=== PATIENT | male | born 1960 | race Caucasian/White ===

== ENCOUNTER 2017-07-25 17:26 | Observation (INO) | payer BC ==
[2017-07-25] MEDS ORDERED: Sodium Chloride 0.9% 10 ML Syringe FLUSH PRN (17:42)
[2017-07-25] MEDS ORDERED: Sodium Chloride 0.9% 1,000 ML IV ONE (17:43)
[2017-07-25] MEDS ORDERED: Albuterol/Ipratropium 3.0-0.5 MG/3 ML Neb Soln NEB ONE (17:48)
[2017-07-25 18:34] LABS: CHLORIDE,CL 100 mmol/L (98-107); SODIUM,NA 137 mmol/L (136-145)
[2017-07-25] MEDS ORDERED: cefTRIAXone 2 GM Vial IVPUSH ONE (19:03)
[2017-07-25] MEDS ORDERED: Azithromycin 250 MG Tab PO ONE (19:04)
[2017-07-25] MEDS: Oseltamivir 75 MG Cap PO SCH (19:22)
[2017-07-25] MEDS ORDERED: Iopamidol 612 MG/ML 100 ML Bottle IVPUSH ONE (19:48)
[2017-07-25] MEDS: methylPREDNISolone Sodium Succinate 125 MG/2 ML SDV IVPUSH SCH (21:56)
[2017-07-25] MEDS: Enoxaparin 40 MG/0.4 ML Syringe SUBCUT SCH (21:56)
[2017-07-25] MEDS: NS + KCl 20mEq/L 1,000 ML IV SCH (21:57)
[2017-07-25] MEDS: Formoterol/Mometasone 200-5 MCG 8.8 GM Inhaler IH SCH (22:57)
[2017-07-26] MEDS: Albuterol/Ipratropium 3.0-0.5 MG/3 ML Neb Soln NEB SCH ×4 (01:27→18:43)
[2017-07-26] MEDS: NS + KCl 20mEq/L 1,000 ML IV SCH ×2 (04:42→11:36)
[2017-07-26] MEDS: Formoterol/Mometasone 200-5 MCG 8.8 GM Inhaler IH SCH ×2 (06:13→20:13)
[2017-07-26] MEDS: methylPREDNISolone Sodium Succinate 125 MG/2 ML SDV IVPUSH SCH ×2 (06:13→15:52)
[2017-07-26] MEDS ORDERED: metFORMIN 500 MG Tab PO SCH (08:00)
[2017-07-26] MEDS ORDERED: atorvaSTATin 10 MG Tab PO SCH ×2 (08:00→20:00)
[2017-07-26] MEDS: Enoxaparin 40 MG/0.4 ML Syringe SUBCUT SCH (08:24)
[2017-07-26] MEDS: Aspirin 81 MG Tab.EC PO SCH (08:25)
[2017-07-26] MEDS: Loratadine 10 MG Tab PO SCH ×2 (08:26→20:12)
[2017-07-26] MEDS: Oseltamivir 75 MG Cap PO SCH ×2 (08:26→20:14)
--- NOTE | 2017-07-26 11:04 | PCM.PN ---
- General Info Date of Service: 07/26/17 Admission Dx/Problem (Free Text): Pt. states that he is feeling much better. He states that his cough and dyspnea have improved significantly. Denies any chest pain. He is currently on rocephin and zithromax as well as tamiflu. He also is receiving solumedrol 125mg IV every 8 hours and duonebs which has significantly with his cough. Pt. continues to be quite tachycardic despite recieving IV fluids. Functional Status: Reports: Pain Controlled - Review of Systems General: Reports: No Symptoms HEENT: Reports: Sinus Congestion, Rhinitis Pulmonary: Reports: Shortness of Breath, Cough Cardiovascular: Reports: No Symptoms Gastrointestinal: Reports: No Symptoms Genitourinary: Reports: No Symptoms Musculoskeletal: Reports: No Symptoms Skin: Reports: No Symptoms Neurological: Reports: No Symptoms Psychiatric: Reports: No Symptoms - Patient Data Vitals - Most Recent: Last Vital Signs Temp 37.2 C 07/26/17 10:00 Pulse 95 07/26/17 10:00 Resp 16 07/26/17 10:00 BP 111/71 07/26/17 10:00 Pulse Ox 94 L 07/26/17 10:00 Weight - Most Recent: 92.986 kg I&O - Last 24 Hours: Intake & Output 07/25/17 07/26/17 07/26/17 22:59 06:59 14:59 Intake Total 1440 3599 2000 Output Total 3200 1150 Balance 1440 399 850 Lab Results Last 24 Hours: Laboratory Results - last 24 hr 07/25/17 07/25/17 07/26/17 Range/Units 23:00 23:00 06:35 WBC 5.4 (4.0-10.0) x10^3/uL RBC 4.19 L (4.5-6.0) x10^6/uL Hgb 12.9 L D (14.0-18.0) g/dL Hct 38.7 L (40.0-52.0) % MCV 92.4 (78.0-93.0) fL MCH 30.8 (26.0-32.0) pg MCHC 33.3 (32.0-36.0) g/dL RDW Coeff of Blayne 11.8 (10.0-15.0) % Plt Count 248 (130-400) x10^3/uL Lactic Acid 1.9 (0.4-2.0) mmol/L Troponin I < 0.017 (<=0.056) ng/mL Yahir Results Last 24 Hours: Microbiology 07/25/17 20:07 Gram Stain - Final Sputum - Expectorated Med Orders - Current: Current Medications Albuterol/Ipratropium (Duoneb 3.0-0.5 Mg/3 Ml) 3 ml NEB Q6HRRT [facility] Last Admin: 07/26/17 07:14 Dose: 3 ml Aspirin (Halfprin) 81 mg PO DAILY [facility] Last Admin: 07/26/17 08:25 Dose: 81 mg Atorvastatin Calcium (Lipitor) 10 mg PO BEDTIME [facility] Azithromycin (Zithromax) 250 mg PO DAILY@1999 [facility] Stop: 07/30/17 20:01 Ceftriaxone Sodium (Rocephin) 1 gm IVPUSH DAILY@1999 [facility] Enoxaparin Sodium (Lovenox) 40 mg SUBCUT DAILY [facility] Last Admin: 07/26/17 08:24 Dose: 40 mg Potassium Chloride/Sodium Chloride (Normal Saline With 20 Meq Kcl) 1,000 mls @ 150 mls/hr IV ASDIRECTED [facility] Last Admin: 07/26/17 04:42 Dose: 150 mls/hr Loratadine (Claritin) 5 mg PO BID [facility] Last Admin: 07/26/17 08:26 Dose: 5 mg Metformin HCl (Glucophage) 1,000 mg PO BID [facility] Methylprednisolone Sodium Succinate (Solu-Medrol) 125 mg IVPUSH Q8H [facility] Last Admin: 07/26/17 06:13 Dose: 125 mg Mometasone Furoate/Formoterol Fumar (Dulera 200-5 Mcg) 2 puff IH BIDRT [facility] Last Admin: 07/26/17 06:13 Dose: 2 puff Oseltamivir Phosphate (Tamiflu) 75 mg PO BID [facility] Last Admin: 07/26/17 08:26 Dose: 75 mg Sodium Chloride (Saline Flush) 10 ml FLUSH ASDIRECTED PRN PRN Reason: Keep Vein Open Discontinued Medications Albuterol/Ipratropium (Duoneb 3.0-0.5 Mg/3 Ml) 3 ml NEB ONETIME ONE Stop: 07/25/17 17:49 Last Admin: 07/25/17 17:56 Dose: 3 ml Atorvastatin Calcium (Lipitor) 10 mg PO DAILY [place] Last Admin: 07/26/17 09:19 Dose: Not Given Azithromycin (Zithromax) 500 mg PO ONETIME ONE Stop: 07/25/17 19:05 Last Admin: 07/25/17 19:23 Dose: 500 mg Ceftriaxone Sodium (Rocephin) 2 gm IVPUSH ONETIME ONE Stop: 07/25/17 19:04 Last Admin: 07/25/17 19:22 Dose: 2 gm Sodium Chloride (Normal Saline) 1,000 mls @ 1,000 mls/hr IV .BOLUS ONE Stop: 07/25/17 18:42 Last Admin: 07/25/17 17:55 Dose: 1,000 mls/hr Iopamidol (Isovue-300 (61%)) 100 ml IVPUSH ONETIME ONE Stop: 07/25/17 19:49 Last Admin: 07/25/17 19:48 Dose: 100 ml - Exam Quality Assessment: Supplemental Oxygen General: Alert, Oriented HEENT: Pupils Equal, Pupils Reactive, EOMI, Mucous Membr. Moist/Amelia Neck: Supple Lungs: Clear to Auscultation, Normal Respiratory Effort, Crackles, Rhonchi Cardiovascular: Regular Rhythm, Tachycardia GI/Abdominal Exam: Normal Bowel Sounds, Soft, Non-Tender, No Organomegaly, No Distention, No Abnormal Bruit, No Mass, Pelvis Stable (Male) Exam: Deferred Back Exam: Normal Inspection, Full Range of Motion Extremities: Normal Inspection, Normal Range of Motion, No Pedal Edema, Normal Capillary Refill Skin: Warm, Dry, Intact Wound/Incisions: Healing Well Neurological: No New Focal Deficit Psy/Mental Status: Alert, Normal Affect, Normal Mood - Problem List & Annotations (1) Influenza SNOMED Code(s): 7038901 Code(s): J11.1 - FLU DUE TO UNIDENTIFIED INFLUENZA VIRUS W OTH RESP MANIFEST Status: Acute Current Visit: Yes (2) Pneumonia SNOMED Code(s): 941824221 Code(s): J18.9 - PNEUMONIA, UNSPECIFIED ORGANISM Status: Acute Current Visit: Yes Qualifiers: Lung location: lower lobe of lung - Problem List Review Problem List Initiated/Reviewed/Updated: Yes - My Orders Last 24 Hours: My Active Orders 07/25/17 20:05 Vital Signs [RC] 06,10,14,18,22,02 07/25/17 20:06 Intake and Output [RC] ,18 Oxygen Therapy [RC] 08,20 Up ad Peg [RC] , VTE/DVT Education [RC] .PRN 07/25/17 20:07 CULTURE SPUTUM + SMEAR [] Stat 07/25/17 20:10 Code Status [Resuscitation Status] Routine 07/25/17 21:38 RT Aerosol Therapy [RC] ,,13,19 07/25/17 21:45 Enoxaparin [Lovenox] 40 mg SUBCUT DAILY NS + KCl 20mEq/L [Normal Saline with 20 mEq KCl] 1,000 ml IV ASDIRECTED 07/25/17 22:00 methylPREDNISolone Sod Succ [Solu-MEDROL] 125 mg IVPUSH Q8H 07/25/17 22:30 Mometasone/Formoterol [Dulera 200-5 MCG] 2 puff IH BIDRT 07/26/17 01:00 Albuterol/Ipratropium [DuoNeb 3.0-0.5 MG/3 ML] 3 ml NEB Q6HRRT 07/26/17 08:00 Aspirin [Halfprin] 81 mg PO DAILY Loratadine [Claritin] 5 mg PO BID metFORMIN [Glucophage] 1,000 mg PO BID 07/26/17 20:00 Azithromycin [Zithromax] 250 mg PO DAILY@1999 atorvaSTATin [Lipitor] 10 mg PO BEDTIME cefTRIAXone [Rocephin] 1 gm IVPUSH DAILY@199907/26/17 Breakfast Regular Diet [DIET] 07/29/17 07:00 CBC W/O DIFF,HEMOGRAM [HEME] Q3D 08/01/17 07:00 CBC W/O DIFF,HEMOGRAM [HEME] Q3D 08/04/17 07:00 CBC W/O DIFF,HEMOGRAM [HEME] Q3D 08/07/17 07:00 CBC W/O DIFF,HEMOGRAM [HEME] Q3D 08/10/17 07:00 CBC W/O DIFF,HEMOGRAM [HEME] Q3D 08/13/17 07:00 CBC W/O DIFF,HEMOGRAM [HEME] Q3D - Assessment Assessment:: Community acquired pneumonia Influenza A Dehydration - Plan Plan:: Continue with current therapy. Will start incentive spirometry as well as flutter valve. Encouraged pt. to ambulate.
[2017-07-26 15:25] LABS: CHLORIDE,CL 100 mmol/L (98-107); SODIUM,NA 133 mmol/L (136-145)
--- NOTE | 2017-07-26 15:46 | EDM.PDOC ---
ED HPI GENERAL MEDICAL PROBLEM - General Chief Complaint: Respiratory Problem Stated Complaint: cough, chest congestion Time Seen by Provider: 07/25/17 17:26 Source of Information: Reports: Patient History Limitations: Reports: No Limitations - History of Present Illness INITIAL COMMENTS - FREE TEXT/NARRATIVE: Pt. presents to the ER with complaints of cough and chest congestion for several weeks, worsening in the past 48 hours. States that the cough is productive of yellowish-greenish sputum. No N/V/D. Denies exposure to sick contacts. Pt. states that he has been extremely fatigued and has been short of breath today, particularly on exertion. He also complains of joint and muscle aches as well. He did not get his flu shot this year. Location: Reports: Chest, Generalized Severity: Moderate Worsens with: Reports: Breathing Associated Symptoms: Reports: Chest Pain, Cough, Diaphoresis, Fever/Chills, Weakness - Related Data Allergies Allergy/AdvReac Type Severity Reaction Status Date / Time No Known Allergies Allergy Verified 07/25/17 19:02 Home Meds: Home Meds Aspirin [Halfprin] 81 mg PO DAILY 02/26/15 [History] Fluticasone/Salmeterol [Advair 250-50] 1 puff PO BID 02/26/15 [History] atorvaSTATin [Lipitor] 10 mg PO DAILY 02/26/15 [History] Loratadine/Pseudoephedrine [Claritin-D 24 Hour Tablet] 1 tab PO DAILY 07/26/17 [ History] metFORMIN HCl [Metformin HCl] 1,000 mg PO BIDMEALS 07/26/17 [History] Past Medical History HEENT History: Reports: Other (See Below) Other HEENT History: seasonal allergies. sinus problems Cardiovascular History: Reports: High Cholesterol Respiratory History: Reports: Asthma Other Musculoskeletal History: fracture of neck of femur Endocrine/Metabolic History: Reports: Diabetes, Type II Oncologic (Cancer) History: Reports: Other (See Below) Other Oncologic History: rectal CA - Past Surgical History GI Surgical History: Reports: None Endocrine Surgical History: Reports: None Other Musculoskeletal Surgeries/Procedures:: REPAIR OF FX LEFT HIP 45 YRS AGO Oncologic Surgical History: Reports: None Social & Family History - Family History Family Medical History: Noncontributory - Tobacco Use Smoking Status *Q: Never Smoker Second Hand Smoke Exposure: No - Caffeine Use Caffeine Use: Reports: None - Recreational Drug Use Recreational Drug Use: No Drug Use in Last 12 Months: No ED ROS GENERAL - Review of Systems Review Of Systems: See Below Constitutional: Reports: Fever, Chills HEENT: Reports: No Symptoms Respiratory: Reports: Shortness of Breath, Cough, Sputum Cardiovascular: Reports: No Symptoms Endocrine: Reports: No Symptoms GI/Abdominal: Reports: No Symptoms : Reports: No Symptoms Musculoskeletal: Reports: Joint Pain, Muscle Pain Skin: Reports: Diaphoresis Neurological: Reports: No Symptoms Psychiatric: Reports: No Symptoms Hematologic/Lymphatic: Reports: No Symptoms Immunologic: Reports: No Symptoms ED EXAM, GENERAL - Physical Exam Exam: See Below Exam Limited By: No Limitations General Appearance: Alert, WD/WN, No Apparent Distress Eye Exam: Bilateral Eye: EOMI, Normal Fundi, Normal Inspection, PERRL Ears: Normal External Exam, Normal Canal, Hearing Grossly Normal, Normal TMs Nose: Normal Inspection, Normal Mucosa, No Blood Throat/Mouth: Normal Inspection, Normal Lips, Normal Teeth, Normal Gums, Normal Oropharynx, Normal Voice, No Airway Compromise Head: Atraumatic, Normocephalic Neck: Normal Inspection, Supple, Non-Tender, Full Range of Motion Respiratory/Chest: No Accessory Muscle Use, Decreased Breath Sounds, Crackles, Rhonchi, Wheezing Cardiovascular: Normal Peripheral Pulses, Regular Rate, Rhythm, No Edema, No JVD , No Murmur, No Rub GI/Abdominal: Normal Bowel Sounds, Soft, Non-Tender, No Organomegaly, No Distention, No Abnormal Bruit, No Mass, Pelvis Stable Back Exam: Normal Inspection, Full Range of Motion Extremities: Normal Inspection, Normal Range of Motion, No Pedal Edema, Normal Capillary Refill Neurological: Alert, Oriented, CN II-XII Intact, Normal Cognition, Normal Gait, Normal Reflexes, No Motor/Sensory Deficits Psychiatric: Normal Affect, Normal Mood Skin Exam: Warm, Dry, Intact, Normal Color, No Rash Course - Vital Signs Last Recorded V/S: Last Vital Signs Temp 37.6 C 07/26/17 14:00 Pulse 120 H 07/26/17 14:00 Resp 20 07/26/17 14:00 BP 137/81 07/26/17 14:00 Pulse Ox 95 07/26/17 14:00 - Orders/Labs/Meds Orders: Active Orders 24 hr Category Date Time Status Cardiac Monitoring [RC] 06,10,14,18,22,02 Care 07/25/17 17:43 Active Oxygen Therapy [RC] PRN Care 07/25/17 17:43 Active RT Aerosol Therapy [RC] ASDIRECTED Care 07/25/17 17:48 Active Ang Chest [CT] Stat Exams 07/25/17 19:08 Taken Chest 2V [CR] Stat Exams 07/25/17 17:42 Taken CULTURE BLOOD [BC] Stat Lab 07/25/17 17:50 Received CULTURE BLOOD [BC] Stat Lab 07/25/17 18:00 Received Oseltamivir [Tamiflu] Med 07/25/17 20:00 Active 75 mg PO BID Sodium Chloride 0.9% [Saline Flush] Med 07/25/17 17:42 Active 10 ml FLUSH ASDIRECTED PRN Blood Culture x2 Reflex Set [OM.PC] Stat Oth 07/25/17 17:43 Ordered Peripheral IV Insertion Adult [OM.PC] Routine Oth 07/25/17 17:43 Ordered Medication Orders Albuterol/Ipratropium (Duoneb 3.0-0.5 Mg/3 Ml) 3 ml NEB Q6HRRT [facility] Last Admin: 07/26/17 12:54 Dose: 3 ml Admin: 07/26/17 07:14 Dose: 3 ml Admin: 07/26/17 01:27 Dose: 3 ml Aspirin (Halfprin) 81 mg PO DAILY [facility] Last Admin: 07/26/17 08:25 Dose: 81 mg Atorvastatin Calcium (Lipitor) 10 mg PO BEDTIME [facility] Azithromycin (Zithromax) 250 mg PO DAILY@1999 [facility] Stop: 07/30/17 20:01 Ceftriaxone Sodium (Rocephin) 1 gm IVPUSH DAILY@1999 [facility] Enoxaparin Sodium (Lovenox) 40 mg SUBCUT DAILY [facility] Last Admin: 07/26/17 08:24 Dose: 40 mg Admin: 07/25/17 21:56 Dose: 40 mg Potassium Chloride/Sodium Chloride (Normal Saline With 20 Meq Kcl) 1,000 mls @ 150 mls/hr IV ASDIRECTED [facility] Last Admin: 07/26/17 11:36 Dose: 150 mls/hr Infusion: 07/26/17 11:23 Dose: 150 mls/hr Admin: 07/26/17 04:42 Dose: 150 mls/hr Infusion: 07/26/17 04:38 Dose: 150 mls/hr Admin: 07/25/17 21:57 Dose: 150 mls/hr Insulin Human Regular (Humulin R) 5 unit SUBCUT TIDAC [facility] PRN Reason: Protocol Loratadine (Claritin) 5 mg PO BID [facility] Last Admin: 07/26/17 08:26 Dose: 5 mg Metformin HCl (Glucophage) 1,000 mg PO BID [facility] Methylprednisolone Sodium Succinate (Solu-Medrol) 125 mg IVPUSH Q8H [facility] Last Admin: 07/26/17 06:13 Dose: 125 mg Admin: 07/25/17 21:56 Dose: 125 mg Mometasone Furoate/Formoterol Fumar (Dulera 200-5 Mcg) 2 puff IH BIDRT [facility] Last Admin: 07/26/17 06:13 Dose: 2 puff Admin: 07/25/17 22:57 Dose: 2 puff Oseltamivir Phosphate (Tamiflu) 75 mg PO BID [facility] Last Admin: 07/26/17 08:26 Dose: 75 mg Admin: 07/25/17 19:22 Dose: 75 mg Sodium Chloride (Saline Flush) 10 ml FLUSH ASDIRECTED PRN PRN Reason: Keep Vein Open Labs: Laboratory Tests 07/25/17 07/25/17 07/25/17 Range/Units 17:55 17:55 17:55 WBC 8.9 (4.0-10.0) x10^3/uL RBC 4.94 (4.5-6.0) x10^6/uL Hgb 15.4 (14.0-18.0) g/dL Hct 45.4 (40.0-52.0) % MCV 91.9 (78.0-93.0) fL MCH 31.2 (26.0-32.0) pg MCHC 33.9 (32.0-36.0) g/dL RDW Coeff of Blayne 12.2 (10.0-15.0) % Plt Count 282 (130-400) x10^3/uL Neut % (Auto) 78.5 (50.0-80.0) % Lymph % (Auto) 9.5 L (25.0-50.0) % [place] % (Auto) 5.1 (2.0-11.0) % Eos % (Auto) 6.8 H (0.0-4.0) % Baso % (Auto) 0.1 L (0.2-1.2) % PT 11.4 (9.8-11.8) SEC INR 1.1 L (2.0-3.5) D-Dimer, Quantitative 0.83 H (<=0.58) mg/LFEU Sodium 137 (136-145) mmol/L Potassium 3.8 (3.5-5.1) mmol/L Chloride 100 (98-107) mmol/L Carbon Dioxide 25 (21-32) mmol/L BUN 19 H (7-18) mg/dL Creatinine 0.9 (0.70-1.30) mg/dL Est Cr Clr Drug Dosing TNP Estimated GFR (MDRD) > 60 Glucose 178 H (74-106) mg/dL Lactic Acid (0.4-2.0) mmol/L Calcium 8.6 (8.5-10.1) mg/dL Corrected Calcium 9.48 (8.5-10.1) mg/dL Magnesium 1.4 L (1.8-2.4) mg/dL Total Bilirubin 0.6 (0.2-1.0) mg/dL AST 15 (15-37) U/L ALT 35 (16-63) U/L Alkaline Phosphatase 78 (46-116) U/L Troponin I < 0.017 (<=0.056) ng/mL C-Reactive Protein 3.2 H (<=0.9) mg/dL NT-Pro-B Natriuret Pep 40 (<=125) pg/mL Total Protein 6.8 (6.4-8.2) g/dL Albumin 2.9 L (3.4-5.0) g/dL Globulin 3.9 Albumin/Globulin Ratio 0.74 //18 Range/Units 17:55 WBC (4.0-10.0) x10^3/uL RBC (4.5-6.0) x10^6/uL Hgb (14.0-18.0) g/dL Hct (40.0-52.0) % MCV (78.0-93.0) fL MCH (26.0-32.0) pg MCHC (32.0-36.0) g/dL RDW Coeff of Blayne (10.0-15.0) % Plt Count (130-400) x10^3/uL Neut % (Auto) (50.0-80.0) % Lymph % (Auto) (25.0-50.0) % [place] % (Auto) (2.0-11.0) % Eos % (Auto) (0.0-4.0) % Baso % (Auto) (0.2-1.2) % PT (9.8-11.8) SEC INR (2.0-3.5) D-Dimer, Quantitative (<=0.58) mg/LFEU Sodium (136-145) mmol/L Potassium (3.5-5.1) mmol/L Chloride (98-107) mmol/L Carbon Dioxide (21-32) mmol/L BUN (7-18) mg/dL Creatinine (0.70-1.30) mg/dL Est Cr Clr Drug Dosing Estimated GFR (MDRD) Glucose (74-106) mg/dL Lactic Acid 1.5 (0.4-2.0) mmol/L Calcium (8.5-10.1) mg/dL Corrected Calcium (8.5-10.1) mg/dL Magnesium (1.8-2.4) mg/dL Total Bilirubin (0.2-1.0) mg/dL AST (15-37) U/L ALT (16-63) U/L Alkaline Phosphatase (46-116) U/L Troponin I (<=0.056) ng/mL C-Reactive Protein (<=0.9) mg/dL NT-Pro-B Natriuret Pep (<=125) pg/mL Total Protein (6.4-8.2) g/dL Albumin (3.4-5.0) g/dL Globulin Albumin/Globulin Ratio Meds: Medications Generic Name Dose Route Start Last Admin Trade Name Freq PRN Reason Stop Dose Admin Albuterol/Ipratropium 3 ml 07/26/17 01:00 07/26/17 12:54 Duoneb 3.0-0.5 Mg/3 Ml NEB 3 ml Q6HRRT [place] Administration Aspirin 81 mg 07/26/17 08:00 07/26/17 08:25 Halfprin PO 81 mg DAILY [place] Administration Atorvastatin Calcium 10 mg 07/26/17 20:00 Lipitor PO BEDTIME [facility] Azithromycin 250 mg 07/26/17 20:00 Zithromax PO 07/30/17 20:01 DAILY@1999 [facility] Ceftriaxone Sodium 1 gm 07/26/17 20:00 Rocephin IVPUSH DAILY@1999 [facility] Enoxaparin Sodium 40 mg 07/25/17 21:45 07/26/17 08:24 Lovenox SUBCUT 40 mg DAILY [place] Administration Potassium Chloride/Sodium Chloride 1,000 mls @ 150 mls/hr 07/25/17 21:45 11:36 Normal Saline With 20 Meq Kcl IV 150 mls/hr ASDIRECTED [facility] Administration Insulin Human Regular 5 unit 07/26/17 17:00 Humulin R SUBCUT TIDAC [facility] Protocol Loratadine 5 mg 07/26/17 08:00 07/26/17 08:26 Claritin PO 5 mg BID [place] Administration Metformin HCl 1,000 mg 07/26/17 08:00 Glucophage PO BID [facility] Methylprednisolone Sodium Succinate 125 mg 07/25/17 22:00 07/26/17 06:13 Solu-Medrol IVPUSH 125 mg Q8H [place] Administration Mometasone Furoate/Formoterol Fumar 2 puff 07/25/17 22:30 07/26/17 06:13 Dulera 200-5 Mcg IH 2 puff BIDRT [facility] Administration Oseltamivir Phosphate 75 mg 07/25/17 20:00 07/26/17 08:26 Tamiflu PO 75 mg BID [place] Administration Sodium Chloride 10 ml 07/25/17 17:42 Saline Flush FLUSH ASDIRECTED PRN Keep Vein Open Discontinued Medications Generic Name Dose Route Start Last Admin Trade Name Freq PRN Reason Stop Dose Admin Albuterol/Ipratropium 3 ml 07/25/17 17:48 07/25/17 17:56 Duoneb 3.0-0.5 Mg/3 Ml NEB 07/25/17 17:49 3 ml ONETIME ONE Administration Atorvastatin Calcium 10 mg 07/26/17 08:00 07/26/17 09:19 Lipitor PO Not Given DAILY [facility] Azithromycin 500 mg 07/25/17 19:04 07/25/17 19:23 Zithromax PO 07/25/17 19:05 500 mg ONETIME ONE Administration Ceftriaxone Sodium 2 gm 07/25/17 19:03 07/25/17 19:22 Rocephin IVPUSH 07/25/17 19:04 2 gm ONETIME ONE Administration Sodium Chloride 1,000 mls @ 1,000 mls/hr 07/25/17 17:43 07/25/17 17:55 Normal Saline IV 07/25/17 18:42 1,000 mls/hr .BOLUS ONE Administration Iopamidol 100 ml 07/25/17 19:48 07/25/17 19:48 Isovue-300 (61%) IVPUSH 07/25/17 19:49 100 ml ONETIME ONE Administration Departure - Departure Time of Disposition: 20:10 Disposition: Admitted As Inpatient 64 Clinical Impression: Pneumonia, Influenza A - Discharge Information - Problem List & Annotations (1) Influenza SNOMED Code(s): 4270642 Code(s): J11.1 - FLU DUE TO UNIDENTIFIED INFLUENZA VIRUS W OTH RESP MANIFEST Status: Acute Current Visit: Yes (2) Pneumonia SNOMED Code(s): 957925547 Code(s): J18.9 - PNEUMONIA, UNSPECIFIED ORGANISM Status: Deleted Current Visit: Yes Qualifiers: Lung location: lower lobe of lung - My Orders Last 24 Hours: My Active Orders 07/25/17 17:42 Chest 2V [CR] Stat Sodium Chloride 0.9% [Saline Flush] 10 ml FLUSH ASDIRECTED PRN 07/25/17 17:43 Cardiac Monitoring [RC] 06,10,14,18,22,02 Oxygen Therapy [RC] PRN Blood Culture x2 Reflex Set [OM.PC] Stat Peripheral IV Insertion Adult [OM.PC] Routine 07/25/17 17:48 RT Aerosol Therapy [RC] ASDIRECTED 07/25/17 17:50 CULTURE BLOOD [BC] Stat 07/25/17 18:00 CULTURE BLOOD [BC] Stat 07/25/17 19:08 Ang Chest [CT] Stat 07/25/17 20:00 Oseltamivir [Tamiflu] 75 mg PO BID - Assessment/Plan Last 24 Hours: My Active Orders 07/25/17 17:42 Chest 2V [CR] Stat Sodium Chloride 0.9% [Saline Flush] 10 ml FLUSH ASDIRECTED PRN 07/25/17 17:43 Cardiac Monitoring [RC] 06,10,14,18,22,02 Oxygen Therapy [RC] PRN Blood Culture x2 Reflex Set [OM.PC] Stat Peripheral IV Insertion Adult [OM.PC] Routine 07/25/17 17:48 RT Aerosol Therapy [RC] ASDIRECTED 07/25/17 17:50 CULTURE BLOOD [BC] Stat 07/25/17 18:00 CULTURE BLOOD [BC] Stat 07/25/17 19:08 Ang Chest [CT] Stat 07/25/17 20:00 Oseltamivir [Tamiflu] 75 mg PO BID
[2017-07-26] MEDS ORDERED: Insulin Regular, Human 100 Units/ML 3 ML Vial SUBCUT SCH (17:00)
[2017-07-26] MEDS: Azithromycin 250 MG Tab PO SCH (20:14)
[2017-07-26] MEDS: cefTRIAXone 1 GM Vial IVPUSH SCH (20:14)
[2017-07-27] MEDS: Albuterol/Ipratropium 3.0-0.5 MG/3 ML Neb Soln NEB SCH ×3 (01:46→12:58)
[2017-07-27] MEDS: Formoterol/Mometasone 200-5 MCG 8.8 GM Inhaler IH SCH (06:15)
[2017-07-27] MEDS: Insulin Regular, Human 100 Units/ML 3 ML Vial SUBCUT SCH ×2 (06:15→12:09)
[2017-07-27 07:30] LABS: CHLORIDE,CL 104 mmol/L (98-107); SODIUM,NA 139 mmol/L (136-145)
[2017-07-27] MEDS: Loratadine 10 MG Tab PO SCH (07:56)
[2017-07-27] MEDS: Enoxaparin 40 MG/0.4 ML Syringe SUBCUT SCH (07:56)
[2017-07-27] MEDS: Oseltamivir 75 MG Cap PO SCH (07:56)
[2017-07-27] MEDS: Aspirin 81 MG Tab.EC PO SCH (07:56)
[2017-07-27 10:34] VITALS: BP 99/67
--- NOTE | 2017-07-27 13:28 | PCM.DCSUM1 ---
Discharge Summary - Hospital Course Brief History: Admitted 07/25/17 to observation due to suspected influenza and CAP. Shortness of breath on ER presentation, fatigue, cough with sputum production. Reports this has been ongoing for several weeks but worse over the last 48 hours prior to admission. - Discharge Data Discharge Date: 07/27/17 Discharge Disposition: Home, Self-Care 01 Condition: Good - Patient Summary/Data Hospital Course: Patient admitted SundayJuly 25, 2017 by Chip Pinto with suspected influenza accompanied by community-acquired pneumonia. He was started on Tamiflu , IV Rocephin, as well as oral azithromycin. At that time he is also started on Solu-Medrol IV which did cause his blood sugars to spike up into the 400s he was then discontinued from this. He did have a CT scan while here and since he does take metformin that's been held since the CT scan. He's been given IV fluids as well as taking the as previously described medications. This has resulted in him feeling better and is requesting to be discharged to home today. - Patient Instructions Diet: Usual Diet as Tolerated Activity: As Tolerated, Cough & Deep Breathe (use both the incentive spirometer and flutter valve when you leave.) Driving: May Drive Today Showering/Bathing: May Shower Notify Provider of: Fever, Nausea and/or Vomiting - Discharge Plan Prescriptions/Med Rec: Azithromycin [IJD: Azithromycin] 250 mg PO DAILY #2 tab Oseltamivir Phosphate [IJD: Tamiflu] 75 mg PO BID #4 capsule Home Medications: Home Meds Aspirin [Halfprin] 81 mg PO DAILY 02/26/15 [History] Fluticasone/Salmeterol [Advair 250-50] 1 puff PO BID 02/26/15 [History] atorvaSTATin [Lipitor] 10 mg PO DAILY 02/26/15 [History] Loratadine/Pseudoephedrine [Claritin-D 24 Hour Tablet] 1 tab PO DAILY 07/26/17 [ History] metFORMIN HCl [Metformin HCl] 1,000 mg PO BIDMEALS 07/26/17 [History] Azithromycin [IJD: Azithromycin] 250 mg PO DAILY #2 tab 07/27/17 [Rx] Oseltamivir Phosphate [IJD: Tamiflu] 75 mg PO BID #4 capsule 07/27/17 [Rx] metFORMIN [Glucophage] 1,000 mg PO BIDMEALS tablet 07/27/17 [Rx] Patient Handouts: Influenza, Adult, [id number], Atelectasis, Adult Forms: ED Department Discharge Referrals: Chinmay Paul MD [Primary Care Provider] - - Discharge Summary/Plan Comment DC Time >30 min.: Yes - Patient Data Vitals - Most Recent: Last Vital Signs Temp 36.6 C 07/27/17 10:00 Pulse 89 07/27/17 10:00 Resp 14 07/27/17 10:00 BP 99/67 07/27/17 10:00 Pulse Ox 94 L 07/27/17 10:00 Weight - Most Recent: 92.986 kg I&O - Last 24 hours: Intake & Output 07/26/17 07/27/17 07/27/17 22:59 06:59 14:59 Intake Total 5212 1200 300 Output Total 1000 2200 Balance 4212 -1000 300 Lab Results - Last 24 hrs: Laboratory Results - last 24 hr 07/26/17 07/26/17 07/26/17 Range/Units 14:42 14:42 14:42 Sodium 133 L (136-145) mmol/L Potassium 4.3 (3.5-5.1) mmol/L Chloride 100 (98-107) mmol/L Carbon Dioxide 23 (21-32) mmol/L BUN 15 (7-18) mg/dL Creatinine 0.9 (0.70-1.30) mg/dL Est Cr Clr Drug Dosing 101.11 mL/min Estimated GFR (MDRD) > 60 Glucose 410 H* (74-106) mg/dL POC Glucose (74-106) mg/dL Lactic Acid 1.8 (0.4-2.0) mmol/L Calcium 8.3 L (8.5-10.1) mg/dL Corrected Calcium 9.42 (8.5-10.1) mg/dL Magnesium 1.6 L (1.8-2.4) mg/dL Total Bilirubin 0.3 (0.2-1.0) mg/dL AST 9 L (15-37) U/L ALT 27 (16-63) U/L Alkaline Phosphatase 75 (46-116) U/L Troponin I < 0.017 (<=0.056) ng/mL NT-Pro-B Natriuret Pep 363 H (<=125) pg/mL Total Protein 6.0 L (6.4-8.2) g/dL Albumin 2.6 L (3.4-5.0) g/dL Globulin 3.4 Albumin/Globulin Ratio 0.76 07/26/17 07/27/17 07/27/17 Range/Units 20:29 06:12 06:30 Sodium 139 (136-145) mmol/L Potassium 3.8 (3.5-5.1) mmol/L Chloride 104 (98-107) mmol/L Carbon Dioxide 26 (21-32) mmol/L BUN 10 (7-18) mg/dL Creatinine 0.7 (0.70-1.30) mg/dL Est Cr Clr Drug Dosing 130.00 mL/min Estimated GFR (MDRD) > 60 Glucose 212 H (74-106) mg/dL POC Glucose 271 H 220 H (74-106) mg/dL Lactic Acid (0.4-2.0) mmol/L Calcium 7.9 L (8.5-10.1) mg/dL Corrected Calcium 9.10 (8.5-10.1) mg/dL Magnesium (1.8-2.4) mg/dL Total Bilirubin 0.3 (0.2-1.0) mg/dL AST 8 L (15-37) U/L ALT 25 (16-63) U/L Alkaline Phosphatase 62 (46-116) U/L Troponin I < 0.017 (<=0.056) ng/mL NT-Pro-B Natriuret Pep (<=125) pg/mL Total Protein 5.9 L (6.4-8.2) g/dL Albumin 2.5 L (3.4-5.0) g/dL Globulin 3.4 Albumin/Globulin Ratio 0.74 07/27/17 Range/Units 11:36 Sodium (136-145) mmol/L Potassium (3.5-5.1) mmol/L Chloride (98-107) mmol/L Carbon Dioxide (21-32) mmol/L BUN (7-18) mg/dL Creatinine (0.70-1.30) mg/dL Est Cr Clr Drug Dosing mL/min Estimated GFR (MDRD) Glucose (74-106) mg/dL POC Glucose 237 H (74-106) mg/dL Lactic Acid (0.4-2.0) mmol/L Calcium (8.5-10.1) mg/dL Corrected Calcium (8.5-10.1) mg/dL Magnesium (1.8-2.4) mg/dL Total Bilirubin (0.2-1.0) mg/dL AST (15-37) U/L ALT (16-63) U/L Alkaline Phosphatase (46-116) U/L Troponin I (<=0.056) ng/mL NT-Pro-B Natriuret Pep (<=125) pg/mL Total Protein (6.4-8.2) g/dL Albumin (3.4-5.0) g/dL Globulin Albumin/Globulin Ratio MONIQUE Results - Last 24 hrs: Microbiology 07/25/17 20:07 Gram Stain - Final Sputum - Expectorated Sputum Culture - Preliminary Gram Negative Diplococci Med Orders - Current: Current Medications Albuterol/Ipratropium (Duoneb 3.0-0.5 Mg/3 Ml) 3 ml NEB Q6HRRT [facility] Last Admin: 07/27/17 12:58 Dose: 3 ml Aspirin (Halfprin) 81 mg PO DAILY [facility] Last Admin: 07/27/17 07:56 Dose: 81 mg Atorvastatin Calcium (Lipitor) 10 mg PO BEDTIME [facility] Last Admin: 07/26/17 20:13 Dose: 10 mg Azithromycin (Zithromax) 250 mg PO DAILY@1999 [facility] Stop: 07/30/17 20:01 Last Admin: 07/26/17 20:14 Dose: 250 mg Ceftriaxone Sodium (Rocephin) 1 gm IVPUSH DAILY@1999 [facility] Last Admin: 07/26/17 20:14 Dose: 1 gm Enoxaparin Sodium (Lovenox) 40 mg SUBCUT DAILY [facility] Last Admin: 07/27/17 07:56 Dose: 40 mg Insulin Human Regular (Humulin R) 0 unit SUBCUT TIDAC [facility] PRN Reason: Protocol Last Admin: 07/27/17 12:09 Dose: 2 units Loratadine (Claritin) 5 mg PO BID [facility] Last Admin: 07/27/17 07:56 Dose: 5 mg Metformin HCl (Glucophage) 1,000 mg PO BIDMEALS [facility] Mometasone Furoate/Formoterol Fumar (Dulera 200-5 Mcg) 2 puff IH BIDRT [facility] Last Admin: 07/27/17 06:15 Dose: 2 puff Oseltamivir Phosphate (Tamiflu) 75 mg PO BID [facility] Last Admin: 07/27/17 07:56 Dose: 75 mg Sodium Chloride (Saline Flush) 10 ml FLUSH ASDIRECTED PRN PRN Reason: Keep Vein Open Discontinued Medications Albuterol/Ipratropium (Duoneb 3.0-0.5 Mg/3 Ml) 3 ml NEB ONETIME ONE Stop: 07/25/17 17:49 Last Admin: 07/25/17 17:56 Dose: 3 ml Atorvastatin Calcium (Lipitor) 10 mg PO DAILY [facility] Last Admin: 07/26/17 09:19 Dose: Not Given Azithromycin (Zithromax) 500 mg PO ONETIME ONE Stop: 07/25/17 19:05 Last Admin: 07/25/17 19:23 Dose: 500 mg Ceftriaxone Sodium (Rocephin) 2 gm IVPUSH ONETIME ONE Stop: 07/25/17 19:04 Last Admin: 07/25/17 19:22 Dose: 2 gm Sodium Chloride (Normal Saline) 1,000 mls @ 1,000 mls/hr IV .BOLUS ONE Stop: 07/25/17 18:42 Last Admin: 07/25/17 17:55 Dose: 1,000 mls/hr Potassium Chloride/Sodium Chloride (Normal Saline With 20 Meq Kcl) 1,000 mls @ 150 mls/hr IV ASDIRECTED [facility] Last Admin: 07/26/17 11:36 Dose: 150 mls/hr Insulin Human Regular (Humulin R) 5 unit SUBCUT TIDAC [facility] PRN Reason: Protocol Last Admin: 07/26/17 16:09 Dose: 5 units Iopamidol (Isovue-300 (61%)) 100 ml IVPUSH ONETIME ONE Stop: 07/25/17 19:49 Last Admin: 07/25/17 19:48 Dose: 100 ml Metformin HCl (Glucophage) 1,000 mg PO BID [facility] Methylprednisolone Sodium Succinate (Solu-Medrol) 125 mg IVPUSH Q8H [facility] Last Admin: 07/26/17 15:52 Dose: Not Given *Q Meaningful Use (DIS) - VTE *Q VTE Criteria *Q: - Stroke *Q Stroke Criteria *Q: - AMI *Q AMI Criteria *Q:
[2017-07-27] MEDS: Azithromycin 250 MG Tab PO SCH (14:36)
[2017-07-27] MEDS: cefTRIAXone 1 GM Vial IVPUSH SCH (14:36)
[2017-07-28] MEDS ORDERED: metFORMIN 500 MG Tab PO SCH (08:00)
== END 2017-07-27 14:50 | disposition home or self-care (01) ==
LOC: VM.ED 17:26 → VM.MS 17:54 → UNDOADMOB 17:54 → INTOOBSV 17:54 → UNDOADMOB 19:50 → UNDOADMIN 19:50 → VM.MS 19:50
PROVIDERS: ADMIT Family Medicine; ATTEND Physician Assistant
DX: J11.08 Influenza due to unidentified influenza virus with specified pneumonia (principal); E78.00 Pure hypercholesterolemia, unspecified; J45.909 Unspecified asthma, uncomplicated; Z85.048 Personal history of other malignant neoplasm of rectum, rectosigmoid junction, and anus; E11.9 Type 2 diabetes mellitus without complications; Z79.82 Long term (current) use of aspirin; Z79.51 Long term (current) use of inhaled steroids; Z79.84 Long term (current) use of oral hypoglycemic drugs; Z79.899 Other long term (current) drug therapy; Z98.890 Other specified postprocedural states
CPT/HCPCS: 36415; 71046; 71275; 80053; 82962; 83605; 83735; 83880; 84484; 85025; 85027; 85379; 85610; 86140; 87040; 87070; 87077; 87205; 87804; 93005; 94640; 94667; 94668; 94760; 96361; 96372; 96374; 96375; 96376; 99285; A9270; G0378; J0696; J1650; J1815; J2930; J3480; J7030; Q9967

== ENCOUNTER 2017-10-15 16:06 | Inpatient (IN) | payer BC ==
[2017-10-15] MEDS ORDERED: methylPREDNISolone Sodium Succinate 125 MG/2 ML SDV IVPUSH ONE (16:25)
[2017-10-15] MEDS ORDERED: cefTRIAXone 2 GM Vial IVPUSH ONE (16:25)
[2017-10-15] MEDS ORDERED: Furosemide 40 MG/4 ML VIAL IV ONE (16:25)
[2017-10-15] MEDS ORDERED: Sodium Chloride 0.9% 10 ML Syringe FLUSH PRN (16:25)
--- NOTE | 2017-10-15 17:02 | EDM.PDOC ---
ED HPI GENERAL MEDICAL PROBLEM - General Chief Complaint: Respiratory Problem Stated Complaint: short of breath Time Seen by Provider: 10/15/17 16:18 Source of Information: Reports: Patient History Limitations: Reports: No Limitations - History of Present Illness INITIAL COMMENTS - FREE TEXT/NARRATIVE: Patient is brought over from the clinic today with complaints of shortness of breath. He states he has had a cough and SOB for several months. He was seen here in August and diagnosed with influenza. His oxygen saturations are in the mid 80's on room air on his arrival here. Was given a nebulizer treatement in the clinic before transfer. Medical history includes rectal cancer in 2015 with radiation and chemo, asthma, nasal polyps, hyperlipidemia, DM II, kidney stone history. Chest x-ray interpretation from the clinic indicates a possible pneumonitis or chronic interstitial changes. He denies smoking, drinking, or using drugs. He does work at the [employer] and does breathe in sawdust. He denies headache, dizziness, chest pain, abdominal pain, blood in urine, stool, or sputum. He states he is not nauseated, no fever. Onset: Gradual Duration: Chronic Location: Reports: Chest Associated Symptoms: Reports: cough w sputum, Shortness of Breath - Related Data Allergies Allergy/AdvReac Type Severity Reaction Status Date / Time No Known Allergies Allergy Verified 10/15/17 16:37 Home Meds: Home Meds Aspirin [Halfprin] 81 mg PO DAILY 02/26/15 [History] Fluticasone/Salmeterol [Advair 250-50] 1 puff PO BID 02/26/15 [History] atorvaSTATin [Lipitor] 10 mg PO DAILY 02/26/15 [History] Loratadine/Pseudoephedrine [Claritin-D 24 Hour Tablet] 1 tab PO DAILY 07/26/17 [ History] metFORMIN HCl [Metformin HCl] 1,000 mg PO BIDMEALS 07/26/17 [History] Azithromycin [IJD: Azithromycin] 250 mg PO DAILY #2 tab 07/27/17 [Rx] Oseltamivir Phosphate [IJD: Tamiflu] 75 mg PO BID #4 capsule 07/27/17 [Rx] metFORMIN [Glucophage] 1,000 mg PO BIDMEALS tablet 07/27/17 [Rx] Past Medical History HEENT History: Reports: Other (See Below) Other HEENT History: seasonal allergies. sinus problems Cardiovascular History: Reports: High Cholesterol Respiratory History: Reports: Asthma Other Musculoskeletal History: fracture of neck of femur Endocrine/Metabolic History: Reports: Diabetes, Type II Oncologic (Cancer) History: Reports: Other (See Below) Other Oncologic History: rectal CA - Past Surgical History GI Surgical History: Reports: None Endocrine Surgical History: Reports: None Other Musculoskeletal Surgeries/Procedures:: REPAIR OF FX LEFT HIP 45 YRS AGO Oncologic Surgical History: Reports: None Social & Family History - Family History Family Medical History: Noncontributory - Tobacco Use Smoking Status *Q: Never Smoker Second Hand Smoke Exposure: No - Caffeine Use Caffeine Use: Reports: None - Recreational Drug Use Recreational Drug Use: No Drug Use in Last 12 Months: No ED ROS GENERAL - Review of Systems Review Of Systems: See Below Constitutional: Reports: No Symptoms HEENT: Reports: No Symptoms Respiratory: Reports: Shortness of Breath, Cough, Sputum Cardiovascular: Reports: No Symptoms Endocrine: Reports: No Symptoms GI/Abdominal: Reports: No Symptoms : Reports: No Symptoms Musculoskeletal: Reports: No Symptoms Skin: Reports: No Symptoms Neurological: Reports: No Symptoms Psychiatric: Reports: No Symptoms Hematologic/Lymphatic: Reports: No Symptoms Immunologic: Reports: No Symptoms ED EXAM, GENERAL - Physical Exam Exam: See Below Exam Limited By: No Limitations General Appearance: Alert, WD/WN, Moderate Distress Eye Exam: Bilateral Eye: EOMI, PERRL Ears: Normal TMs Nose: Normal Inspection Throat/Mouth: Normal Inspection, Normal Lips, Normal Teeth, Normal Gums, Normal Oropharynx, Normal Voice, No Airway Compromise Head: Atraumatic, Normocephalic Neck: Normal Inspection, Supple, Non-Tender, Full Range of Motion Respiratory/Chest: Lungs Clear, Decreased Breath Sounds Cardiovascular: Normal Peripheral Pulses, Regular Rate, Rhythm, No Edema, No Gallop, No JVD, No Murmur, No Rub Peripheral Pulses: 2+: Posterior Tibial (L), Posterior Tibial (R), Dorsalis Pedis (L), Dorsalis Pedis (R) GI/Abdominal: Normal Bowel Sounds, Soft, Non-Tender, No Organomegaly, No Distention, No Abnormal Bruit, No Mass Extremities: Normal Inspection, Normal Range of Motion, Non-Tender, Normal Capillary Refill, No Pedal Edema Neurological: Alert, Oriented, CN II-XII Intact, Normal Cognition, Normal Gait, Normal Reflexes, No Motor/Sensory Deficits Psychiatric: Normal Affect, Normal Mood Skin Exam: Warm, Dry, Intact, Normal Color, No Rash Lymphatic: No Adenopathy Course - Orders/Labs/Meds Orders: Active Orders 24 hr Category Date Time Status Oxygen Therapy Adult [Oxygen Therapy, ED] [RC] Care 10/15/17 16:28 Ordered ASDIRECTED CBC WITH AUTO DIFF [HEME] Stat Lab 10/15/17 16:25 Ordered CULTURE BLOOD [BC] Stat Lab 10/15/17 16:26 Ordered CULTURE BLOOD [BC] Stat Lab 10/15/17 16:26 Ordered INR,PT,PROTHROMBIN TIME [COAG] Stat Lab 10/15/17 16:25 Ordered LACTIC ACID [CHEM] Stat Lab 10/15/17 16:25 Ordered PRO B-TYPE NATRIUR PEPT,BNPPRO [CHEM] Stat Lab 10/15/17 16:25 Ordered TROPONIN I [CHEM] Stat Lab 10/15/17 16:25 Ordered UA W/MICROSCOPIC [URIN] Stat Lab 10/15/17 16:25 Ordered Sodium Chloride 0.9% [Saline Flush] Med 10/15/17 16:25 Ordered 10 ml FLUSH ASDIRECTED PRN Blood Culture x2 Reflex Set [OM.PC] Stat Oth 10/15/17 16:25 Ordered Saline Lock Insert [OM.PC] Routine Oth 10/15/17 16:25 Ordered Medication Orders Sodium Chloride (Saline Flush) 10 ml FLUSH ASDIRECTED PRN PRN Reason: Keep Vein Open Meds: Medications Generic Name Dose Route Start Last Admin Trade Name Freq PRN Reason Stop Dose Admin Sodium Chloride 10 ml 10/15/17 16:25 Saline Flush FLUSH ASDIRECTED PRN Keep Vein Open Discontinued Medications Generic Name Dose Route Start Last Admin Trade Name Freq PRN Reason Stop Dose Admin Ceftriaxone Sodium 2 gm 10/15/17 16:25 Rocephin IVPUSH 10/15/17 16:26 ONETIME ONE Furosemide 40 mg 10/15/17 16:25 Lasix IV 10/15/17 16:26 ONETIME ONE Methylprednisolone Sodium Succinate 125 mg 10/15/17 16:25 Solu-Medrol IVPUSH 10/15/17 16:26 ONETIME ONE - Re-Assessments/Exams Free Text/Narrative Re-Assessment/Exam: 10/15/17 18:11 REview of labs indicate leukocytosis, bandemia, urine does not appear to be cause of infection. D-dimer is negative, negative troponin, normal lactic acid and crp. CK is also normal. Reduction of oxygen via nasal cannula to 3L down from initial of 5L. Saturating in upper 80-low 90% Departure - Departure Time of Disposition: 18:13 Disposition: Admitted As Inpatient 64 Condition: Fair Clinical Impression: Community acquired bacterial pneumonia - Discharge Information Forms: ED Department Discharge ED Communication - ED Communication Date/Time Date: 10/15/17 Time Called: 18:09 - Discussed Case With (1) Discussed Case With (1): Admitting Provider (Discussed case with Dr. Rizo. She will assume care and Dr. Paul will be attending in the AM.) - Problem List & Annotations (1) Community acquired bacterial pneumonia SNOMED Code(s): 371754003, 532369341 Code(s): J15.9 - UNSPECIFIED BACTERIAL PNEUMONIA Status: Acute Priority: Medium - Problem List Review Problem List Initiated/Reviewed/Updated: Yes - My Orders Last 24 Hours: My Active Orders 10/15/17 16:25 CBC WITH AUTO DIFF [HEME] Stat INR,PT,PROTHROMBIN TIME [COAG] Stat LACTIC ACID [CHEM] Stat PRO B-TYPE NATRIUR PEPT,BNPPRO [CHEM] Stat TROPONIN I [CHEM] Stat UA W/MICROSCOPIC [URIN] Stat Sodium Chloride 0.9% [Saline Flush] 10 ml FLUSH ASDIRECTED PRN Blood Culture x2 Reflex Set [OM.PC] Stat Saline Lock Insert [OM.PC] Routine 10/15/17 16:26 CULTURE BLOOD [BC] Stat CULTURE BLOOD [BC] Stat 10/15/17 16:28 Oxygen Therapy Adult [Oxygen Therapy, ED] [RC] ASDIRECTED - Assessment/Plan Last 24 Hours: My Active Orders 10/15/17 16:25 CBC WITH AUTO DIFF [HEME] Stat INR,PT,PROTHROMBIN TIME [COAG] Stat LACTIC ACID [CHEM] Stat PRO B-TYPE NATRIUR PEPT,BNPPRO [CHEM] Stat TROPONIN I [CHEM] Stat UA W/MICROSCOPIC [URIN] Stat Sodium Chloride 0.9% [Saline Flush] 10 ml FLUSH ASDIRECTED PRN Blood Culture x2 Reflex Set [OM.PC] Stat Saline Lock Insert [OM.PC] Routine 10/15/17 16:26 CULTURE BLOOD [BC] Stat CULTURE BLOOD [BC] Stat 10/15/17 16:28 Oxygen Therapy Adult [Oxygen Therapy, ED] [RC] ASDIRECTED Plan: patient care assumed by composition roll maker and cutter [place] provider Dr. Rizo. She is admitting provider.
[2017-10-15 17:44] LABS: CHLORIDE,CL 102 mmol/L (98-107); SODIUM,NA 139 mmol/L (136-145)
[2017-10-15] MEDS ORDERED: Acetaminophen 325 MG Tab PO PRN (18:19)
[2017-10-15] MEDS ORDERED: Promethazine 25 MG Tab PO PRN (18:26)
[2017-10-15] MEDS ORDERED: Aluminum Hydroxide/Magnesium Hydroxide/Simethicone Susp 30 ML Cup PO PRN (18:26)
[2017-10-15] MEDS ORDERED: Albuterol 0.083% 2.5 MG/3 ML Neb Soln NEB PRN (18:29)
[2017-10-15] MEDS ORDERED: Potassium Chloride 10 MEQ Tab.ER PO ONE ×3 (18:43→21:15)
[2017-10-15] MEDS ORDERED: methylPREDNISolone Sodium Succinate 125 MG/2 ML SDV IVPUSH SCH (19:00)
[2017-10-15] MEDS: glipiZIDE 5 MG Tab.ER PO SCH (20:50)
[2017-10-15] MEDS: Azithromycin 500 MG in Sodium Chloride 0.9% 250 ML IV SCH (21:10)
[2017-10-15] MEDS: Albuterol/Ipratropium 3.0-0.5 MG/3 ML Neb Soln NEB SCH (21:45)
[2017-10-15] MEDS ORDERED: Magnesium Sulfate/Water 2 GM in Premix Bag 1 BAG IV ONE (22:15)
[2017-10-15] MEDS: Formoterol/Mometasone 100-5 MCG 8.8 GM Inhaler IH SCH (22:22)
[2017-10-15] MEDS: NS + KCl 20mEq/L 1,000 ML IV SCH (22:34)
--- NOTE | 2017-10-16 00:33 | HP ---
CHIEF COMPLAINT: Shortness of breath. HISTORY OF PRESENT ILLNESS: The patient is a 56-year-old male who has been having increasing shortness of breath the past month. He has been having emphysema and has been on Advair for several years. He was recently seen by an rewinder operator helper who did some nasal testing and he had a peak flow meter testing done the end of August. He was switched from Advair to Symbicort due to cost and had been questionably better. He sees Dr. Last Roa as his primary provider. He had influenza in 08/2017. He says since then he has never been quite back to his normal self. He denies any history of heart problems. He has had some nausea recently and heartburn recently. He was seen today in the clinic by Yu Cedeno. He was given some sort of nebulized treatment in the clinic, it did not help, and it was noted that his O2 saturations were 89% when he presented to the clinic, so he was brought to the emergency room. While in the emergency room, he was seen by DIANE Gaines. He had received Rocephin 2 g IM, Zithromax 500 mg, Solu-Medrol 125 mg, and Lasix 40 mg. Chest x-ray at the clinic was equivocal for any sort of pneumonitis. The patient did have oxygen applied and his sats did go up to 93% on 2 L. It was noted his pulse was in the 117. He comments he just has not been feeling like he has had much energy recent. The patient was recently supposed to have been started on glipizide to help with his diabetes, but he has not yet started the medication yet. The patient has had previous rectal cancer, but he has completed his chemotherapy. The patient did have a CT scan of his chest on 07/25/2017 which showed peribronchial inflammation, some hiatal hernia, questionably mild edema. MEDICATIONS: He is currently on metformin 1000 mg one pill twice a day, Symbicort 80/4.5 two puffs twice a day (question compliance on this), albuterol MDI 2 puffs q.4 hours p.r.n., aspirin 81 mg one pill daily, Lipitor 20 mg, 0.5 mg one pill a day, and he was to have been started on glipizide extended release, 5 mg one pill daily, but the patient has not yet started it. ALLERGIES: The patient just has environmental allergies. PAST MEDICAL HISTORY: The patient has type 2 diabetes mellitus, hyperlipidemia, asthma, history of kidney cancer, elevated ferritin. He has had primary colorectal cancer in his rectal area since 2014. He has had nasal polyps, type 2 diabetes mellitus. Kidney stones were in 2007. The patient's most recent colonoscopy on 03/23/2017 had no polyps. PAST SURGICAL HISTORY: He has had some ORIF of left hip. He has had an ultrasound of his colon. He has had flexible sigmoidoscopies in the past, tonsillectomy and adenoidectomy. FAMILY MEDICAL HISTORY: Father has diabetes. Mother in her 70s. Brothers had melanoma. Other brothers had kidney cancer. Cousin had lung cancer. SOCIAL HISTORY: He is . 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 He has never smoked. He does not consume alcohol. He has had a son who of suicide, does have a daughter. REVIEW OF SYSTEMS: His weight has been the same. He has had some nausea. Did have a some skin rash in the past. Mood has been good. He has not had chest pain. No headaches. No fever, chills. PHYSICAL EXAMINATION: Vital Signs: Temperature is 36.6, pulse is 119, blood pressure is 136/86, respiratory rate is 20, saturations are 95 on 3 L. Skin: Slightly diaphoretic. HEENT: His pharynx is normal. NECK: No anterior cervical lymphadenopathy or thyromegaly. HEART: Regular rate and rhythm. LUNGS: Diminished breath sounds on bases. No crackles. No wheezes. Abdomen: Soft and nontender. No hepatosplenomegaly. LOWER EXTREMITIES: No edema, NEUROLOGIC: He moves all extremities symmetric. PSYCH: His mood is pleasant, bright. STUDIES: EKG shows sinus tachycardia, moderate ST depression. His laboratory data showed that his white blood cell count is 16.7, hemoglobin 16.2, platelets are 254, with 73 segs, 7 bands, 10 lymphocytes, 5 eosinophils. INR is 1.1. Protime 11.4. D-dimer 0.57, normal is 0.58 or less. Sodium is 139; potassium 3.4, creatinine 1.1. GFR greater than 60. Glucose is 250. Lactic acid 1.9, calcium is 8.6, total bilirubin 0.9, AST 11, ALT 27, alkaline phosphatase 71, CK 107. ProBNP 31. Total protein normal. TSH 4.91, normal being 0.35 to 3.74. Urine was dark which showed very concentrated urine. He has protein greater than 300 mg/dL in his urine, ketones are 15. Influenza tests negative. Magnesium later came back at 1.4 and lactic acid was elevated, but troponin normal 4 hrs later. IMPRESSION: 1. SIRS with pneumonia.. 2. Hypoxemia due to acute pneumonia. 3. Chronic obstructive pulmonary disease with exacerbation. 4. Type 2 diabetes mellitus. 5. tachycardia secondary to acute illness. 6. EKG nonspecific ST changes. 7. Hypercholesterolemia. 8. 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 9. Hypomagnesemia. PLAN: The patient will be admitted to acute care. He has already received Rocephin, , Solu-Medrol and Lasix in the emergency room. We will need to monitor his lactic acid as well as troponin. He will be on duonebs and oxygne. We will add oral potassium to his pills. He will be given zithromax.as well as IV fluids. and magnesium. The patient is code level [address] Last Roa will be his primary care provider and will see him tomorrow. We will also repeat troponin to make certain that there is not a component of coronary artery disease present. Will need to monitor his I & O's. GM10/15/2017 18:42:25 MODL: 10/16/2017 00:22:21 /[id number]
[2017-10-16] MEDS ORDERED: methylPREDNISolone Sodium Succinate 125 MG/2 ML SDV IVPUSH SCH (05:00)
[2017-10-16] MEDS: NS + KCl 20mEq/L 1,000 ML IV SCH (05:35)
[2017-10-16] MEDS ORDERED: Albuterol 0.083% 2.5 MG/3 ML Neb Soln INH PRN (07:00)
[2017-10-16] MEDS: Albuterol/Ipratropium 3.0-0.5 MG/3 ML Neb Soln NEB SCH ×3 (07:24→14:48)
[2017-10-16] MEDS ORDERED: atorvaSTATin 10 MG Tab PO SCH (08:00)
[2017-10-16] MEDS ORDERED: metFORMIN 500 MG Tab PO SCH (08:00)
[2017-10-16] MEDS ORDERED: cefTRIAXone 2 GM Vial IVPUSH SCH ×2 (08:00→17:00)
[2017-10-16] MEDS ORDERED: Aspirin 81 MG Tab.EC PO SCH (08:00)
[2017-10-16] MEDS: Azithromycin 500 MG in Sodium Chloride 0.9% 250 ML IV SCH (08:07)
[2017-10-16] MEDS: glipiZIDE 5 MG Tab.ER PO SCH (08:09)
[2017-10-16] MEDS: Formoterol/Mometasone 100-5 MCG 8.8 GM Inhaler IH SCH (08:09)
[2017-10-16] MEDS: Insulin Aspart 100 Units/ML 3 ML Pen SUBCUT SCH ×2 (08:13→12:11)
[2017-10-16 08:33] LABS: CHLORIDE,CL 102 mmol/L (98-107); SODIUM,NA 135 mmol/L (136-145)
[2017-10-16 10:24] VITALS: BP 106/70
--- NOTE | 2017-10-16 13:52 | PCM.DCSUM1 ---
Discharge Summary - Hospital Course Free Text/Narrative:: Admission date 10/15/2017. Discharge date 10/16/2017. Diagnoses: pneumonitis, chronic lung disease, hypoxia. Patient presented clinic yesterday with acute respiratory symptoms over past day or so. Seemed to be running some low-grade temps he had dyspnea and a burning sensation in his chest. He's been having similar symptoms to a lesser degree the past 3-4 months and being diagnosed with influenza and having brief hospitalization then. He saw mortgage servicing specialist he had a fair amount of obstruction at 60% FEV1 with little reversibility. He's been on Symbicort and albuterol which don't help a lot. Does not smoke. He has a history of rectal cancer which appears to be stable without sign of recurrence status post radiation. I do not believe he had any chemotherapy. Sent to ER as his O2 sats were 85% when he presented, he was mildly tachycardic borderline fever less than 100. Leukocytosis to 21,000 CRP elevated at 44. BNP and troponin were negative for any cardiac etiology. D-dimer would be considered pretty normal as it was less than or equal to his age with no definitive thromboembolic risk factors. He was started on Rocephin and azithromycin and Solu-Medrol. He had brisk improvement. DuoNeb seem to help him a fair amount as well. He would like to return home. He'll be discharged on five days of oral Omnicef, four days to complete his azithromycin course, five days moderate to low-dose prednisone 20 mg. Continue home inhalers. He can call if he would like a DuoNeb does not want to machine currently. Follow-up with me in two weeks. Repeat imaging 4-6 weeks after prior x-ray. If this was not improving or worsening we would proceed to CT of the chest, repeat PFTs and having him see lung/asthma specialist sooner. He otherwise has repeat CT chest abdomen pelvis scheduled for five months when he sees oncologist for routine follow-up of rectal malignancy - Discharge Data Discharge Date: 10/16/17 Discharge Disposition: Home, Self-Care 01 Condition: Good - Discharge Plan Prescriptions/Med Rec: Azithromycin [IJD: Azithromycin] 250 mg PO DAILY #6 tab Cefdinir [Omnicef] 300 mg PO BID #10 cap Prednisone [IJD: predniSONE] 20 mg PO WITHBREAKFAST #5 tab Home Medications: Home Meds atorvaSTATin [Lipitor] 10 mg PO DAILY 02/26/15 [History] metFORMIN [Glucophage] 1,000 mg PO BIDMEALS tablet 07/27/17 [Rx] Albuterol [Proventil HFA] 2 puff INH Q4H PRN 10/15/17 [History] Aspirin [Halfprin] 81 mg PO DAILY 10/15/17 [History] Budesonide/Formoterol Fumarate [Symbicort 80-4.5 Mcg Inhaler] 2 puff INH BID [History] Acetaminophen [Tylenol] 650 mg PO Q4H PRN tablet 10/16/17 [Rx] Alum Hydrox/Mag Hydrox/Simeth [Mag-Al Plus] 30 ml PO Q4H PRN cup 10/16/17 [Rx] Azithromycin [IJD: Azithromycin] 250 mg PO DAILY #6 tab 10/16/17 [Rx] Cefdinir [Omnicef] 300 mg PO BID #10 cap 10/16/17 [Rx] Prednisone [IJD: predniSONE] 20 mg PO WITHBREAKFAST #5 tab 10/16/17 [Rx] glipiZIDE [Glucotrol XL] 5 mg PO DAILY tab.er 10/16/17 [Rx] Forms: ED Department Discharge - Patient Data Vitals - Most Recent: Last Vital Signs Temp 36.8 C 10/16/17 10:00 Pulse 89 10/16/17 10:00 Resp 16 10/16/17 10:00 BP 106/70 10/16/17 10:00 Pulse Ox 94 L 10/16/17 10:00 Weight - Most Recent: 90.174 kg I&O - Last 24 hours: Intake & Output 10/15/17 10/16/17 10/16/17 22:59 06:59 14:59 Intake Total 2260 1200 Output Total 500 1300 700 Balance -500 960 500 Lab Results - Last 24 hrs: Laboratory Results - last 24 hr 10/15/17 10/15/17 10/15/17 Range/Units 17:05 17:05 17:05 WBC 16.7 H (4.0-10.0) x10^3/uL RBC 5.02 (4.5-6.0) x10^6/uL Hgb 16.2 D (14.0-18.0) g/dL Hct 46.7 (40.0-52.0) % MCV 93.0 (78.0-93.0) fL MCH 32.3 H (26.0-32.0) pg MCHC 34.7 (32.0-36.0) g/dL RDW Coeff of Blayne 13.2 (10.0-15.0) % Plt Count 254 (130-400) x10^3/uL Add Manual Diff Yes Neutrophils % (Manual) 73 (50-80) % Band Neutrophils % 7 H (0-6) % Lymphocytes % (Manual) 10 L (25-50) % Monocytes % (Manual) 4 (2-11) % Eosinophils % (Manual) 5 H (0-4) % Basophils % (Manual) 1 (0-1) % Metamyelocytes % (0) % Vacuolated Monocytes 1+ slight H Toxic Granulation 1+ slight H Platelet Estimate Adequate Macrocytosis PT 11.4 (9.8-11.8) SEC INR 1.1 L (2.0-3.5) D-Dimer, Quantitative (<=0.58) mg/LFEU POC ABG pH (7.35-7.45) POC ABG pCO2 (35-45) mmHG POC ABG pO2 (80-105) mmHG POC ABG HCO3 (22-26) mmol/L POC ABG Total CO2 (23-27) mmol/L POC ABG O2 Sat (95-98) % POC ABG Base Excess (-2-3) mmol/L POC VBG pH (7.31-7.41) POC VBG pCO2 (41-51) POC VBG pO2 POC VBG HCO3 (23-28) POC VBG Total CO2 (24-29) POC VBG Base Excess ((-2) - 3) POC FiO2 Sodium 139 (136-145) mmol/L Potassium 3.4 L (3.5-5.1) mmol/L Chloride 102 (98-107) mmol/L Carbon Dioxide 26 (21-32) mmol/L Anion Gap 14.4 (10-20) mmol/L BUN 19 H (7-18) mg/dL Creatinine 1.1 (0.70-1.30) mg/dL Est Cr Clr Drug Dosing 82.72 mL/min Estimated GFR (MDRD) > 60 Glucose 250 H (74-106) mg/dL POC Glucose (74-106) mg/dL Lactic Acid (0.4-2.0) mmol/L Calcium 8.6 (8.5-10.1) mg/dL Corrected Calcium 9.08 (8.5-10.1) mg/dL Magnesium (1.8-2.4) mg/dL Total Bilirubin 0.9 (0.2-1.0) mg/dL AST 11 L (15-37) U/L ALT 27 (16-63) U/L Alkaline Phosphatase 71 (46-116) U/L Creatine Kinase (39-308) U/L POC Troponin I (0.00-0.08) ng/mL Troponin I (<=0.056) ng/mL C-Reactive Protein (<=0.9) mg/dL NT-Pro-B Natriuret Pep 31 (<=125) pg/mL Total Protein 6.7 (6.4-8.2) g/dL Albumin 3.4 (3.4-5.0) g/dL Globulin 3.3 Albumin/Globulin Ratio 1.03 Amylase (25-115) U/L TSH, Ultra Sensitive (0.358-3.74) uIU/mL Urine Color (YELLOW) Urine Appearance (CLEAR) Urine pH (5.0-8.0) Ur Specific [place] Urine Protein (NEGATIVE) mg/dL Urine Glucose (UA) (NEGATIVE) mg/dL Urine Ketones (NEGATIVE) mg/dL Urine Occult Blood (NEGATIVE) Urine Nitrite (NEGATIVE) Urine Bilirubin (NEGATIVE) Urine Urobilinogen (0.2) EU/dL Ur Leukocyte Esterase (NEGATIVE) Urine RBC (NOT SEEN) /HPF Urine WBC (NOT SEEN) /HPF Ur Squamous Epith Cells (NEGATIVE) /HPF Urine Bacteria (NEGATIVE) /HPF Urine Mucus (NEGATIVE) /LPF Urine Other 10/15/17 10/15/17 10/15/17 Range/Units 17:05 17:05 17:05 WBC (4.0-10.0) x10^3/uL RBC (4.5-6.0) x10^6/uL Hgb (14.0-18.0) g/dL Hct (40.0-52.0) % MCV (78.0-93.0) fL MCH (26.0-32.0) pg MCHC (32.0-36.0) g/dL RDW Coeff of [place]ayne (10.0-15.0) % Plt Count (130-400) x10^3/uL Add Manual Diff Neutrophils % (Manual) (50-80) % Band Neutrophils % (0-6) % Lymphocytes % (Manual) (25-50) % Monocytes % (Manual) (2-11) % Eosinophils % (Manual) (0-4) % Basophils % (Manual) (0-1) % Metamyelocytes % (0) % Vacuolated Monocytes Toxic Granulation Platelet Estimate Macrocytosis PT (9.8-11.8) SEC INR (2.0-3.5) D-Dimer, Quantitative 0.57 (<=0.58) mg/LFEU POC ABG pH (7.35-7.45) POC ABG pCO2 (35-45) mmHG POC ABG pO2 (80-105) mmHG POC ABG HCO3 (22-26) mmol/L POC ABG Total CO2 (23-27) mmol/L POC ABG O2 Sat (95-98) % POC ABG Base Excess (-2-3) mmol/L POC VBG pH (7.31-7.41) POC VBG pCO2 (41-51) POC VBG pO2 POC VBG HCO3 (23-28) POC VBG Total CO2 (24-29) POC VBG Base Excess ((-2) - 3) POC FiO2 Sodium (136-145) mmol/L Potassium (3.5-5.1) mmol/L Chloride (98-107) mmol/L Carbon Dioxide (21-32) mmol/L Anion Gap (10-20) mmol/L BUN (7-18) mg/dL Creatinine (0.70-1.30) mg/dL Est Cr Clr Drug Dosing mL/min Estimated GFR (MDRD) Glucose (74-106) mg/dL POC Glucose (74-106) mg/dL Lactic Acid 1.9 (0.4-2.0) mmol/L Calcium (8.5-10.1) mg/dL Corrected Calcium (8.5-10.1) mg/dL Magnesium (1.8-2.4) mg/dL Total Bilirubin (0.2-1.0) mg/dL AST (15-37) U/L ALT (16-63) U/L Alkaline Phosphatase (46-116) U/L Creatine Kinase (39-308) U/L POC Troponin I (0.00-0.08) ng/mL Troponin I (<=0.056) ng/mL C-Reactive Protein (<=0.9) mg/dL NT-Pro-B Natriuret Pep (<=125) pg/mL Total Protein (6.4-8.2) g/dL Albumin (3.4-5.0) g/dL Globulin Albumin/Globulin Ratio Amylase (25-115) U/L TSH, Ultra Sensitive 4.914 H (0.358-3.74) uIU/mL Urine Color (YELLOW) Urine Appearance (CLEAR) Urine pH (5.0-8.0) Ur Specific [place] Urine Protein (NEGATIVE) mg/dL Urine Glucose (UA) (NEGATIVE) mg/dL Urine Ketones (NEGATIVE) mg/dL Urine Occult Blood (NEGATIVE) Urine Nitrite (NEGATIVE) Urine Bilirubin (NEGATIVE) Urine Urobilinogen (0.2) EU/dL Ur Leukocyte Esterase (NEGATIVE) Urine RBC (NOT SEEN) /HPF Urine WBC (NOT SEEN) /HPF Ur Squamous Epith Cells (NEGATIVE) /HPF Urine Bacteria (NEGATIVE) /HPF Urine Mucus (NEGATIVE) /LPF Urine Other 10/15/17 10/15/17 10/15/17 Range/Units 17:05 17:12 17:22 WBC (4.0-10.0) x10^3/uL RBC (4.5-6.0) x10^6/uL Hgb (14.0-18.0) g/dL Hct (40.0-52.0) % MCV (78.0-93.0) fL MCH (26.0-32.0) pg MCHC (32.0-36.0) g/dL RDW Coeff of [place]ayne (10.0-15.0) % Plt Count (130-400) x10^3/uL Add Manual Diff Neutrophils % (Manual) (50-80) % Band Neutrophils % (0-6) % Lymphocytes % (Manual) (25-50) % Monocytes % (Manual) (2-11) % Eosinophils % (Manual) (0-4) % Basophils % (Manual) (0-1) % Metamyelocytes % (0) % Vacuolated Monocytes Toxic Granulation Platelet Estimate Macrocytosis PT (9.8-11.8) SEC INR (2.0-3.5) D-Dimer, Quantitative (<=0.58) mg/LFEU POC ABG pH (7.35-7.45) POC ABG pCO2 (35-45) mmHG POC ABG pO2 (80-105) mmHG POC ABG HCO3 (22-26) mmol/L POC ABG Total CO2 (23-27) mmol/L POC ABG O2 Sat (95-98) % POC ABG Base Excess (-2-3) mmol/L POC VBG pH (7.31-7.41) POC VBG pCO2 (41-51) POC VBG pO2 POC VBG HCO3 (23-28) POC VBG Total CO2 (24-29) POC VBG Base Excess ((-2) - 3) POC FiO2 Sodium (136-145) mmol/L Potassium (3.5-5.1) mmol/L Chloride (98-107) mmol/L Carbon Dioxide (21-32) mmol/L Anion Gap (10-20) mmol/L BUN (7-18) mg/dL Creatinine (0.70-1.30) mg/dL Est Cr Clr Drug Dosing mL/min Estimated GFR (MDRD) Glucose (74-106) mg/dL POC Glucose (74-106) mg/dL Lactic Acid (0.4-2.0) mmol/L Calcium (8.5-10.1) mg/dL Corrected Calcium (8.5-10.1) mg/dL Magnesium (1.8-2.4) mg/dL Total Bilirubin (0.2-1.0) mg/dL AST (15-37) U/L ALT (16-63) U/L Alkaline Phosphatase (46-116) U/L Creatine Kinase 107 (39-308) U/L POC Troponin I 0.00 (0.00-0.08) ng/mL Troponin I (<=0.056) ng/mL C-Reactive Protein (<=0.9) mg/dL NT-Pro-B Natriuret Pep (<=125) pg/mL Total Protein (6.4-8.2) g/dL Albumin (3.4-5.0) g/dL Globulin Albumin/Globulin Ratio Amylase (25-115) U/L TSH, Ultra Sensitive (0.358-3.74) uIU/mL Urine Color Dark yellow H (YELLOW) Urine Appearance Slightly cloudy H (CLEAR) Urine pH 5.0 (5.0-8.0) Ur Specific [place] >=1.030 Urine Protein >=300 H (NEGATIVE) mg/dL Urine Glucose (UA) 250 H (NEGATIVE) mg/dL Urine Ketones 15 H (NEGATIVE) mg/dL Urine Occult Blood Negative (NEGATIVE) Urine Nitrite Negative (NEGATIVE) Urine Bilirubin Small H (NEGATIVE) Urine Urobilinogen 0.2 (0.2) EU/dL Ur Leukocyte Esterase Negative (NEGATIVE) Urine RBC 0-5 (NOT SEEN) /HPF Urine WBC 0-5 (NOT SEEN) /HPF Ur Squamous Epith Cells Few H (NEGATIVE) /HPF Urine Bacteria Not seen (NEGATIVE) /HPF Urine Mucus Many H (NEGATIVE) /LPF Urine Other See note 10/15/17 10/15/17 10/15/17 Range/Units 18:55 21:20 21:20 WBC (4.0-10.0) x10^3/uL RBC (4.5-6.0) x10^6/uL Hgb (14.0-18.0) g/dL Hct (40.0-52.0) % MCV (78.0-93.0) fL MCH (26.0-32.0) pg MCHC (32.0-36.0) g/dL RDW Coeff of [place]ay[place] (10.0-15.0) % Plt Count (130-400) x10^3/uL Add Manual Diff Neutrophils % (Manual) (50-80) % Band Neutrophils % (0-6) % Lymphocytes % (Manual) (25-50) % Monocytes % (Manual) (2-11) % Eosinophils % (Manual) (0-4) % Basophils % (Manual) (0-1) % Metamyelocytes % (0) % Vacuolated Monocytes Toxic Granulation Platelet Estimate Macrocytosis PT (9.8-11.8) SEC INR (2.0-3.5) D-Dimer, Quantitative (<=0.58) mg/LFEU POC ABG pH (7.35-7.45) POC ABG pCO2 (35-45) mmHG POC ABG pO2 (80-105) mmHG POC ABG HCO3 (22-26) mmol/L POC ABG Total CO2 (23-27) mmol/L POC ABG O2 Sat (95-98) % POC ABG Base Excess (-2-3) mmol/L POC VBG pH 7.39 (7.31-7.41) POC VBG pCO2 46 (41-51) POC VBG pO2 22 POC VBG HCO3 28 (23-28) POC VBG Total CO2 29 (24-29) POC VBG Base Excess 2 ((-2) - 3) POC FiO2 0.21 Sodium (136-145) mmol/L Potassium (3.5-5.1) mmol/L Chloride (98-107) mmol/L Carbon Dioxide (21-32) mmol/L Anion Gap (10-20) mmol/L BUN (7-18) mg/dL Creatinine (0.70-1.30) mg/dL Est Cr Clr Drug Dosing mL/min Estimated GFR (MDRD) Glucose (74-106) mg/dL POC Glucose (74-106) mg/dL Lactic Acid (0.4-2.0) mmol/L Calcium (8.5-10.1) mg/dL Corrected Calcium (8.5-10.1) mg/dL Magnesium 1.4 L (1.8-2.4) mg/dL Total Bilirubin (0.2-1.0) mg/dL AST (15-37) U/L ALT (16-63) U/L Alkaline Phosphatase (46-116) U/L Creatine Kinase (39-308) U/L POC Troponin I (0.00-0.08) ng/mL Troponin I < 0.017 (<=0.056) ng/mL C-Reactive Protein (<=0.9) mg/dL NT-Pro-B Natriuret Pep (<=125) pg/mL Total Protein (6.4-8.2) g/dL Albumin (3.4-5.0) g/dL Globulin Albumin/Globulin Ratio Amylase (25-115) U/L TSH, Ultra Sensitive (0.358-3.74) uIU/mL Urine Color (YELLOW) Urine Appearance (CLEAR) Urine pH (5.0-8.0) Ur Specific [place] Urine Protein (NEGATIVE) mg/dL Urine Glucose (UA) (NEGATIVE) mg/dL Urine Ketones (NEGATIVE) mg/dL Urine Occult Blood (NEGATIVE) Urine Nitrite (NEGATIVE) Urine Bilirubin (NEGATIVE) Urine Urobilinogen (0.2) EU/dL Ur Leukocyte Esterase (NEGATIVE) Urine RBC (NOT SEEN) /HPF Urine WBC (NOT SEEN) /HPF Ur Squamous Epith Cells (NEGATIVE) /HPF Urine Bacteria (NEGATIVE) /HPF Urine Mucus (NEGATIVE) /LPF Urine Other 10/15/17 10/15/17 10/16/17 Range/Units 21:20 22:03 06:28 WBC (4.0-10.0) x10^3/uL RBC (4.5-6.0) x10^6/uL Hgb (14.0-18.0) g/dL Hct (40.0-52.0) % MCV (78.0-93.0) fL MCH (26.0-32.0) pg MCHC (32.0-36.0) g/dL RDW Coeff of [place]ayne (10.0-15.0) % Plt Count (130-400) x10^3/uL Add Manual Diff Neutrophils % (Manual) (50-80) % Band Neutrophils % (0-6) % Lymphocytes % (Manual) (25-50) % Monocytes % (Manual) (2-11) % Eosinophils % (Manual) (0-4) % Basophils % (Manual) (0-1) % Metamyelocytes % (0) % Vacuolated Monocytes Toxic Granulation Platelet Estimate Macrocytosis PT (9.8-11.8) SEC INR (2.0-3.5) D-Dimer, Quantitative (<=0.58) mg/LFEU POC ABG pH (7.35-7.45) POC ABG pCO2 (35-45) mmHG POC ABG pO2 (80-105) mmHG POC ABG HCO3 (22-26) mmol/L POC ABG Total CO2 (23-27) mmol/L POC ABG O2 Sat (95-98) % POC ABG Base Excess (-2-3) mmol/L POC VBG pH (7.31-7.41) POC VBG pCO2 (41-51) POC VBG pO2 POC VBG HCO3 (23-28) POC VBG Total CO2 (24-29) POC VBG Base Excess ((-2) - 3) POC FiO2 Sodium (136-145) mmol/L Potassium (3.5-5.1) mmol/L Chloride (98-107) mmol/L Carbon Dioxide (21-32) mmol/L Anion Gap (10-20) mmol/L BUN (7-18) mg/dL Creatinine (0.70-1.30) mg/dL Est Cr Clr Drug Dosing mL/min Estimated GFR (MDRD) Glucose (74-106) mg/dL POC Glucose 335 H 225 H (74-106) mg/dL Lactic Acid 2.6 H* (0.4-2.0) mmol/L Calcium (8.5-10.1) mg/dL Corrected Calcium (8.5-10.1) mg/dL Magnesium (1.8-2.4) mg/dL Total Bilirubin (0.2-1.0) mg/dL AST (15-37) U/L ALT (16-63) U/L Alkaline Phosphatase (46-116) U/L Creatine Kinase (39-308) U/L POC Troponin I (0.00-0.08) ng/mL Troponin I (<=0.056) ng/mL C-Reactive Protein (<=0.9) mg/dL NT-Pro-B Natriuret Pep (<=125) pg/mL Total Protein (6.4-8.2) g/dL Albumin (3.4-5.0) g/dL Globulin Albumin/Globulin Ratio Amylase (25-115) U/L TSH, Ultra Sensitive (0.358-3.74) uIU/mL Urine Color (YELLOW) Urine Appearance (CLEAR) Urine pH (5.0-8.0) Ur Specific [place] Urine Protein (NEGATIVE) mg/dL Urine Glucose (UA) (NEGATIVE) mg/dL Urine Ketones (NEGATIVE) mg/dL Urine Occult Blood (NEGATIVE) Urine Nitrite (NEGATIVE) Urine Bilirubin (NEGATIVE) Urine Urobilinogen (0.2) EU/dL Ur Leukocyte Esterase (NEGATIVE) Urine RBC (NOT SEEN) /HPF Urine WBC (NOT SEEN) /HPF Ur Squamous Epith Cells (NEGATIVE) /HPF Urine Bacteria (NEGATIVE) /HPF Urine Mucus (NEGATIVE) /LPF Urine Other 10/16/17 10/16/17 10/16/17 Range/Units 07:49 07:49 07:49 WBC 10.4 H (4.0-10.0) x10^3/uL RBC 4.39 L (4.5-6.0) x10^6/uL Hgb 14.2 D (14.0-18.0) g/dL Hct 41.2 (40.0-52.0) % MCV 93.8 H (78.0-93.0) fL MCH 32.3 H (26.0-32.0) pg MCHC 34.5 (32.0-36.0) g/dL RDW Coeff of [place]ay[place] 12.7 (10.0-15.0) % Plt Count 203 (130-400) x10^3/uL Add Manual Diff Neutrophils % (Manual) 79 (50-80) % Band Neutrophils % 12 H (0-6) % Lymphocytes % (Manual) 6 L (25-50) % Monocytes % (Manual) 2 (2-11) % Eosinophils % (Manual) (0-4) % Basophils % (Manual) (0-1) % Metamyelocytes % 1 H (0) % Vacuolated Monocytes 1+ slight H Toxic Granulation 1+ slight H Platelet Estimate Adequate Macrocytosis 1+ slight H PT (9.8-11.8) SEC INR (2.0-3.5) D-Dimer, Quantitative (<=0.58) mg/LFEU POC ABG pH (7.35-7.45) POC ABG pCO2 (35-45) mmHG POC ABG pO2 (80-105) mmHG POC ABG HCO3 (22-26) mmol/L POC ABG Total CO2 (23-27) mmol/L POC ABG O2 Sat (95-98) % POC ABG Base Excess (-2-3) mmol/L POC VBG pH (7.31-7.41) POC VBG pCO2 (41-51) POC VBG pO2 POC VBG HCO3 (23-28) POC VBG Total CO2 (24-29) POC VBG Base Excess ((-2) - 3) POC FiO2 Sodium 135 L (136-145) mmol/L Potassium 4.2 (3.5-5.1) mmol/L Chloride 102 (98-107) mmol/L Carbon Dioxide 23 (21-32) mmol/L Anion Gap 14.2 (10-20) mmol/L BUN 17 (7-18) mg/dL Creatinine 0.7 (0.70-1.30) mg/dL Est Cr Clr Drug Dosing 130.00 mL/min Estimated GFR (MDRD) > 60 Glucose 236 H (74-106) mg/dL POC Glucose (74-106) mg/dL Lactic Acid 0.9 (0.4-2.0) mmol/L Calcium 8.1 L (8.5-10.1) mg/dL Corrected Calcium 8.90 (8.5-10.1) mg/dL Magnesium (1.8-2.4) mg/dL Total Bilirubin 0.6 (0.2-1.0) mg/dL AST 9 L (15-37) U/L ALT 21 (16-63) U/L Alkaline Phosphatase 61 (46-116) U/L Creatine Kinase (39-308) U/L POC Troponin I (0.00-0.08) ng/mL Troponin I < 0.017 (<=0.056) ng/mL C-Reactive Protein 4.4 H (<=0.9) mg/dL NT-Pro-B Natriuret Pep (<=125) pg/mL Total Protein 6.0 L (6.4-8.2) g/dL Albumin 3.0 L (3.4-5.0) g/dL Globulin 3.0 Albumin/Globulin Ratio 1.00 Amylase 52 (25-115) U/L TSH, Ultra Sensitive (0.358-3.74) uIU/mL Urine Color (YELLOW) Urine Appearance (CLEAR) Urine pH (5.0-8.0) Ur Specific [place] Urine Protein (NEGATIVE) mg/dL Urine Glucose (UA) (NEGATIVE) mg/dL Urine Ketones (NEGATIVE) mg/dL Urine Occult Blood (NEGATIVE) Urine Nitrite (NEGATIVE) Urine Bilirubin (NEGATIVE) Urine Urobilinogen (0.2) EU/dL Ur Leukocyte Esterase (NEGATIVE) Urine RBC (NOT SEEN) /HPF Urine WBC (NOT SEEN) /HPF Ur Squamous Epith Cells (NEGATIVE) /HPF Urine Bacteria (NEGATIVE) /HPF Urine Mucus (NEGATIVE) /LPF Urine Other 10/16/17 10/16/17 10/16/17 Range/Units 07:49 09:29 10:48 WBC (4.0-10.0) x10^3/uL RBC (4.5-6.0) x10^6/uL Hgb (14.0-18.0) g/dL Hct (40.0-52.0) % MCV (78.0-93.0) fL MCH (26.0-32.0) pg MCHC (32.0-36.0) g/dL RDW Coeff of [place] (10.0-15.0) % Plt Count (130-400) x10^3/uL Add Manual Diff Neutrophils % (Manual) (50-80) % Band Neutrophils % (0-6) % Lymphocytes % (Manual) (25-50) % Monocytes % (Manual) (2-11) % Eosinophils % (Manual) (0-4) % Basophils % (Manual) (0-1) % Metamyelocytes % (0) % Vacuolated Monocytes Toxic Granulation Platelet Estimate Macrocytosis PT (9.8-11.8) SEC INR (2.0-3.5) D-Dimer, Quantitative (<=0.58) mg/LFEU POC ABG pH 7.407 (7.35-7.45) POC ABG pCO2 31 L (35-45) mmHG POC ABG pO2 87 (80-105) mmHG POC ABG HCO3 19 L (22-26) mmol/L POC ABG Total CO2 20 L (23-27) mmol/L POC ABG O2 Sat 97 (95-98) % POC ABG Base Excess -5 L (-2-3) mmol/L POC VBG pH (7.31-7.41) POC VBG pCO2 (41-51) POC VBG pO2 POC VBG HCO3 (23-28) POC VBG Total CO2 (24-29) POC VBG Base Excess ((-2) - 3) POC FiO2 0.28 Sodium (136-145) mmol/L Potassium (3.5-5.1) mmol/L Chloride (98-107) mmol/L Carbon Dioxide (21-32) mmol/L Anion Gap (10-20) mmol/L BUN (7-18) mg/dL Creatinine (0.70-1.30) mg/dL Est Cr Clr Drug Dosing mL/min Estimated GFR (MDRD) Glucose (74-106) mg/dL POC Glucose 272 H (74-106) mg/dL Lactic Acid (0.4-2.0) mmol/L Calcium (8.5-10.1) mg/dL Corrected Calcium (8.5-10.1) mg/dL Magnesium 2.0 (1.8-2.4) mg/dL Total Bilirubin (0.2-1.0) mg/dL AST (15-37) U/L ALT (16-63) U/L Alkaline Phosphatase (46-116) U/L Creatine Kinase (39-308) U/L POC Troponin I (0.00-0.08) ng/mL Troponin I (<=0.056) ng/mL C-Reactive Protein (<=0.9) mg/dL NT-Pro-B Natriuret Pep (<=125) pg/mL Total Protein (6.4-8.2) g/dL Albumin (3.4-5.0) g/dL Globulin Albumin/Globulin Ratio Amylase (25-115) U/L TSH, Ultra Sensitive (0.358-3.74) uIU/mL Urine Color (YELLOW) Urine Appearance (CLEAR) Urine pH (5.0-8.0) Ur Specific [place] Urine Protein (NEGATIVE) mg/dL Urine Glucose (UA) (NEGATIVE) mg/dL Urine Ketones (NEGATIVE) mg/dL Urine Occult Blood (NEGATIVE) Urine Nitrite (NEGATIVE) Urine Bilirubin (NEGATIVE) Urine Urobilinogen (0.2) EU/dL Ur Leukocyte Esterase (NEGATIVE) Urine RBC (NOT SEEN) /HPF Urine WBC (NOT SEEN) /HPF Ur Squamous Epith Cells (NEGATIVE) /HPF Urine Bacteria (NEGATIVE) /HPF Urine Mucus (NEGATIVE) /LPF Urine Other [facility] Results - Last 24 hrs: Microbiology 10/15/17 16:20 Influenza Type A Antigen Screen - Final Nasal Aspirate, Unspecified NEGATIVE INFLUENZA A VIRUS AG Influenza Type B Antigen Screen - Final NEGATIVE INFLUENZA B VIRUS AG Med Orders - Current: Current Medications Acetaminophen (Tylenol) 650 mg PO Q4H PRN PRN Reason: Pain (Mild 1-3)/fever Al Hydroxide/Mg Hydroxide (Mag-Al Plus) 30 ml PO Q4H PRN PRN Reason: Dyspepsia Last Admin: 10/16/17 01:09 Dose: 30 ml Albuterol (Proventil Neb Soln) 2.5 mg NEB Q2H PRN PRN Reason: Dyspnea Last Admin: 04/17/18 01:58 Dose: 2.5 mg Albuterol/Ipratropium (Duoneb 3.0-0.5 Mg/3 Ml) 3 ml NEB QIDRT [facility] Last Admin: 10/16/17 10:52 Dose: 3 ml Aspirin (Halfprin) 81 mg PO DAILY [facility] Last Admin: 10/16/17 08:09 Dose: 81 mg Atorvastatin Calcium (Lipitor) 10 mg PO DAILY [facility] Last Admin: 10/16/17 08:08 Dose: 10 mg Ceftriaxone Sodium (Rocephin) 2 gm IVPUSH DAILY@1700 [facility] Glipizide (Glucotrol Xl) 5 mg PO DAILY [facility] Last Admin: 10/16/17 08:09 Dose: 5 mg Azithromycin 500 mg/ Sodium (Chloride) 250 mls @ 250 mls/hr IV DAILY [facility] Stop: 10/17/17 08:59 Last Admin: 10/16/17 08:07 Dose: 250 mls/hr Potassium Chloride/Sodium Chloride (Normal Saline With 20 Meq Kcl) 1,000 mls @ 150 mls/hr IV ASDIRECTED [facility] Last Admin: 10/16/17 05:35 Dose: 150 mls/hr Insulin Aspart (Novolog) 0 unit SUBCUT TIDMEALS [facility]; Protocol Last Admin: 10/16/17 12:11 Dose: 3 unit Metformin HCl (Glucophage) 1,000 mg PO BIDMEALS [facility] Last Admin: 10/16/17 08:08 Dose: 1,000 mg Methylprednisolone Sodium Succinate (Solu-Medrol) 125 mg IVPUSH Q12H [facility] Last Admin: 10/16/17 05:35 Dose: 125 mg Mometasone Furoate/Formoterol Fumar (Dulera 100-5 Mcg) 0 puff IH BIDRT [facility] Last Admin: 10/16/17 08:09 Dose: 2 puff Promethazine HCl (Phenergan) 25 mg PO Q4H PRN PRN Reason: Nausea/Vomiting Sodium Chloride (Saline Flush) 10 ml FLUSH ASDIRECTED PRN PRN Reason: Keep Vein Open Discontinued Medications Ceftriaxone Sodium (Rocephin) 2 gm IVPUSH ONETIME ONE Stop: 10/15/17 16:26 Last Admin: 10/15/17 17:08 Dose: 2 gm Ceftriaxone Sodium (Rocephin) 2 gm IVPUSH DAILY [facility] Furosemide (Lasix) 40 mg IV ONETIME ONE Stop: 10/15/17 16:26 Last Admin: 10/15/17 17:14 Dose: 40 mg Magnesium Sulfate 2 gm/ Premix 50 mls @ 25 mls/hr IV ONETIME ONE Stop: 10/16/17 00:14 Last Admin: 10/15/17 22:34 Dose: 25 mls/hr Methylprednisolone Sodium Succinate (Solu-Medrol) 125 mg IVPUSH ONETIME ONE Stop: 10/15/17 16:26 Last Admin: 10/15/17 17:12 Dose: 125 mg Methylprednisolone Sodium Succinate (Solu-Medrol) 125 mg IVPUSH Q12H [place] Potassium Chloride (Klor-Con 10) 10 meq PO ONETIME ONE Stop: 10/15/17 18:44 Last Admin: 10/15/17 21:15 Dose: Not Given Potassium Chloride (Klor-Con 10) 10 meq PO ONETIME ONE Stop: 10/15/17 21:01 Last Admin: 10/15/17 21:15 Dose: Not Given Potassium Chloride (Klor-Con 10) 10 meq PO ONETIME ONE Stop: 10/15/17 21:16 Last Admin: 10/15/17 21:13 Dose: 10 meq
== END 2017-10-16 15:30 | disposition home or self-care (01) | DRG 139 ==
LOC: VM.ED 16:06 → VM.MS 17:55
PROVIDERS: ADMIT Family Medicine; ATTEND Family Medicine
DX: J15.9 Unspecified bacterial pneumonia (principal); J43.9 Emphysema, unspecified; E83.42 Hypomagnesemia; R12 Heartburn; E11.9 Type 2 diabetes mellitus without complications; E78.5 Hyperlipidemia, unspecified; R09.02 Hypoxemia; J45.909 Unspecified asthma, uncomplicated; Z85.048 Personal history of other malignant neoplasm of rectum, rectosigmoid junction, and anus; Z92.3 Personal history of irradiation; Z79.84 Long term (current) use of oral hypoglycemic drugs; Z79.82 Long term (current) use of aspirin; Z85.528 Personal history of other malignant neoplasm of kidney; Z92.21 Personal history of antineoplastic chemotherapy; Z87.442 Personal history of urinary calculi; Z79.52 Long term (current) use of systemic steroids; Z79.899 Other long term (current) drug therapy
CPT/HCPCS: 36415; 36600; 80053; 81001; 82150; 82550; 82803; 82962; 83605; 83735; 83880; 84443; 84484; 85025; 85379; 85610; 86140; 87040; 87804; 87804-59; 87880-QW; 93005; 94640; 94760; 96374; 96375; 99285; A9270-GY; J0456; J0696; J1815-GY; J1940; J2930; J3475; J3480; J7050; J7620-GY

== ENCOUNTER 2018-03-11 17:26 | Inpatient (IN) | payer BC ==
[2018-03-11] MEDS ORDERED: Albuterol/Ipratropium 3.0-0.5 MG/3 ML Neb Soln NEB ONE ×2 (17:29→19:04)
[2018-03-11] MEDS ORDERED: methylPREDNISolone Sodium Succinate 125 MG/2 ML SDV IVPUSH ONE (17:29)
[2018-03-11] MEDS ORDERED: Sodium Chloride 0.9% 1,000 ML IV ONE (17:30)
[2018-03-11 18:21] LABS: PCO2 ARTERIAL 34 mmHG (35-45)
[2018-03-11 18:22] LABS: CHLORIDE,CL 102 mmol/L (98-107); SODIUM,NA 138 mmol/L (136-145)
[2018-03-11 18:23] LABS: BASE EXCESS ARTERIAL -3 mmol/L (-2-3); BICARBONATE,ARTERIAL 21 mmol/L (22-26)
[2018-03-11 18:24] LABS: PO2 ARTERIAL 59 mmHG (80-105)
[2018-03-11 18:25] LABS: ANION GAP 12.3 mmol/L (10-20)
--- NOTE | 2018-03-11 18:25 | EDM.PDOC ---
ED HPI GENERAL MEDICAL PROBLEM - General Chief Complaint: Respiratory Problem Stated Complaint: SOB Time Seen by Provider: 03/11/18 17:28 Source of Information: Reports: Patient, Family, RN, RN Notes Reviewed History Limitations: Reports: No Limitations - History of Present Illness INITIAL COMMENTS - FREE TEXT/NARRATIVE: Patient presents to the ED at [facility] complaining of SOB that started a couple days ago, but became much worse over the past half to one hour. Patient states he was seen in clinic on March 06, 2018. He was diagnosed with a chronic cough and given 40 mg of IM Kenalog and started on a 10 day coarse of Augmentin. Patient states his SOB has progressively gotten worse. He has a dry non-productive cough. He is tachycardic. He did start Spiriva today along with taking his Proventil. He states his breathing felt worse after those meds. He denies any chest pain. No focal neurological deficits. No abdominal pain. Patient denies any N/V/D. Onset: Today, Sudden Onset Date: 03/11/18 - Related Data Allergies Allergy/AdvReac Type Severity Reaction Status Date / Time No Known Allergies Allergy Verified 03/11/18 19:33 Home Meds: Home Meds atorvaSTATin [Lipitor] 10 mg PO DAILY 02/26/15 [History] metFORMIN [Glucophage] 1,000 mg PO BIDMEALS tablet 07/27/17 [Rx] Albuterol [Proventil HFA] 2 puff INH Q4H PRN 10/15/17 [History] Aspirin [Halfprin] 81 mg PO DAILY 10/15/17 [History] Budesonide/Formoterol Fumarate [Symbicort 80-4.5 Mcg Inhaler] 2 puff INH BID [History] glipiZIDE [Glucotrol XL] 5 mg PO DAILY tab.er 10/16/17 [Rx] Amoxicillin/Clavulanate K [Augmentin 875-125 MG] 1 tab PO BID 03/11/18 [History] Fluticasone Propionate [Flonase] 1 spray IN DAILY 03/11/18 [History] Past Medical History HEENT History: Reports: Other (See Below) Other HEENT History: seasonal allergies. sinus problems Cardiovascular History: Reports: High Cholesterol Respiratory History: Reports: Asthma Other Musculoskeletal History: fracture of neck of femur Endocrine/Metabolic History: Reports: Diabetes, Type II Oncologic (Cancer) History: Reports: Other (See Below) Other Oncologic History: rectal CA - Past Surgical History GI Surgical History: Reports: None Endocrine Surgical History: Reports: None Other Musculoskeletal Surgeries/Procedures:: REPAIR OF FX LEFT HIP 45 YRS AGO Oncologic Surgical History: Reports: None Social & Family History - Family History Family Medical History: Noncontributory - Caffeine Use Caffeine Use: Reports: None ED ROS GENERAL - Review of Systems Review Of Systems: See Below Constitutional: Denies: Fever, Chills Respiratory: Reports: Shortness of Breath, Cough. Denies: Wheezing, Sputum Cardiovascular: Denies: Chest Pain, Palpitations GI/Abdominal: Denies: Abdominal Pain, Nausea, Vomiting Skin: Reports: No Symptoms Neurological: Reports: No Symptoms. Denies: Dizziness, Headache ED EXAM, GENERAL - Physical Exam Exam: See Below Exam Limited By: No Limitations General Appearance: Alert, No Apparent Distress Respiratory/Chest: No Respiratory Distress, Lungs Clear, Decreased Breath Sounds Cardiovascular: Normal Peripheral Pulses, No Edema, Tachycardia Peripheral Pulses: 2+: Radial (L), Radial (R) GI/Abdominal: Normal Bowel Sounds, Soft, Non-Tender Neurological: Alert, Oriented Skin Exam: Warm, Dry, Intact, Normal Color EKG INTERPRETATION EKG Date: 03/11/18 Time: 17:57 Rhythm: Other (Sinus Tachycardia) Rate (Beats/Min): 125 Kaiser: Normal P-Wave: Present QRS: Normal ST-T: Normal QT: Normal AR/PQ Interval: 0.16 EKG Interpretation Comments: 1. Sinus Tachycardia 2. Abnormal Rhythm ECG Course - Vital Signs Last Recorded V/S: Last Vital Signs Temp 36.9 C 03/11/18 17:30 Pulse 124 H 03/11/18 18:50 Resp 22 H 03/11/18 18:50 BP 158/99 H 03/11/18 18:50 Pulse Ox 90 L 03/11/18 18:50 - Orders/Labs/Meds Orders: Active Orders 24 hr Category Date Time Status EKG 12 Lead [EKG Documentation Completion] [RC] STAT Care 03/11/18 17:29 Active RT Aerosol Therapy [RC] ASDIRECTED Care 03/11/18 17:30 Active Chest 2V [CR] Stat Exams 03/11/18 17:28 Taken Chest PE [Ang Chest] [CT] Stat Exams 03/11/18 18:23 Taken Sodium Chloride 0.9% [Saline Flush] Med 03/11/18 17:29 Active 10 ml FLUSH ASDIRECTED PRN Peripheral IV Insertion Adult [OM.PC] Routine Oth 03/11/18 17:29 Ordered Medication Orders Sodium Chloride (Saline Flush) 10 ml FLUSH ASDIRECTED PRN PRN Reason: Keep Vein Open Labs: Laboratory Tests 03/11/18 03/11/18 03/11/18 Range/Units 17:50 17:50 17:50 WBC 12.3 H (4.0-10.0) x10^3/uL RBC 4.90 (4.5-6.0) x10^6/uL Hgb 15.8 D (14.0-18.0) g/dL Hct 45.8 (40.0-52.0) % MCV 93.5 H (78.0-93.0) fL MCH 32.2 H (26.0-32.0) pg MCHC 34.5 (32.0-36.0) g/dL RDW Coeff of Blayne 12.2 (10.0-15.0) % Plt Count 251 (130-400) x10^3/uL Add Manual Diff Yes Neutrophils % (Manual) 80 (50-80) % Lymphocytes % (Manual) 8 L (25-50) % Monocytes % (Manual) 3 (2-11) % Eosinophils % (Manual) 8 H (0-4) % Blast Cells % 1 H (0) % Platelet Estimate Adequate PT 12.2 H (9.6-11.4) SEC INR 1.2 L (2.0-3.5) D-Dimer, Quantitative 0.64 H (<=0.58) mg/LFEU POC ABG pH ABG pH (7.35-7.45) POC ABG pCO2 ABG pCO2 (35-45) mmHG POC ABG pO2 ABG pO2 (80-105) mmHG POC ABG HCO3 ABG HCO3 (22-26) mmol/L POC ABG Total CO2 ABG Total CO2 (23-27) mmol/L POC ABG O2 Sat ABG O2 Content (95-98) % POC ABG Base Excess ABG Base Excess (-2-3) mmol/L POC VBG pH POC VBG pCO2 POC VBG pO2 POC VBG HCO3 POC VBG Total CO2 POC VBG Base Excess O2 Delivery Device POC O2 Flow Rate FiO2 POC FiO2 Sodium 138 (136-145) mmol/L Potassium 3.3 L (3.5-5.1) mmol/L Chloride 102 (98-107) mmol/L Carbon Dioxide 27 (21-32) mmol/L Anion Gap 12.3 (10-20) mmol/L BUN 23 H (7-18) mg/dL Creatinine 1.1 (0.70-1.30) mg/dL Est Cr Clr Drug Dosing TNP Estimated GFR (MDRD) > 60 Glucose 249 H (74-106) mg/dL Calcium 8.3 L (8.5-10.1) mg/dL Creatine Kinase 42 (39-308) U/L Troponin I < 0.017 (<=0.056) ng/mL 03/11/18 03/11/18 Range/Units 18:15 18:15 WBC (4.0-10.0) x10^3/uL RBC (4.5-6.0) x10^6/uL Hgb (14.0-18.0) g/dL Hct (40.0-52.0) % MCV (78.0-93.0) fL MCH (26.0-32.0) pg MCHC (32.0-36.0) g/dL RDW Coeff of Blayne (10.0-15.0) % Plt Count (130-400) x10^3/uL Add Manual Diff Neutrophils % (Manual) (50-80) % Lymphocytes % (Manual) (25-50) % Monocytes % (Manual) (2-11) % Eosinophils % (Manual) (0-4) % Blast Cells % (0) % Platelet Estimate PT (9.6-11.4) SEC INR (2.0-3.5) D-Dimer, Quantitative (<=0.58) mg/LFEU POC ABG pH Cancelled ABG pH 7.41 (7.35-7.45) POC ABG pCO2 Cancelled ABG pCO2 34 L (35-45) mmHG POC ABG pO2 Cancelled ABG pO2 59 L* (80-105) mmHG POC ABG HCO3 Cancelled ABG HCO3 21 L (22-26) mmol/L POC ABG Total CO2 Cancelled ABG Total CO2 22 L (23-27) mmol/L POC ABG O2 Sat Cancelled ABG O2 Content 91 L (95-98) % POC ABG Base Excess Cancelled ABG Base Excess -3 L (-2-3) mmol/L POC VBG pH Cancelled POC VBG pCO2 Cancelled POC VBG pO2 Cancelled POC VBG HCO3 Cancelled POC VBG Total CO2 Cancelled POC VBG Base Excess Cancelled O2 Delivery Device Cancelled POC O2 Flow Rate Cancelled FiO2 0.32 POC FiO2 Cancelled Sodium (136-145) mmol/L Potassium (3.5-5.1) mmol/L Chloride (98-107) mmol/L Carbon Dioxide (21-32) mmol/L Anion Gap (10-20) mmol/L BUN (7-18) mg/dL Creatinine (0.70-1.30) mg/dL Est Cr Clr Drug Dosing Estimated GFR (MDRD) Glucose (74-106) mg/dL Calcium (8.5-10.1) mg/dL Creatine Kinase (39-308) U/L Troponin I (<=0.056) ng/mL Meds: Medications Generic Name Dose Route Start Last Admin Trade Name Freq PRN Reason Stop Dose Admin Sodium Chloride 10 ml 03/11/18 17:29 Saline Flush FLUSH ASDIRECTED PRN Keep Vein Open Discontinued Medications Generic Name Dose Route Start Last Admin Trade Name Freq PRN Reason Stop Dose Admin Albuterol/Ipratropium 3 ml 03/11/18 17:29 03/11/18 17:49 Duoneb 3.0-0.5 Mg/3 Ml NEB 03/11/18 17:30 3 ml ONETIME ONE Administration Albuterol/Ipratropium 3 ml 03/11/18 19:04 03/11/18 19:16 Duoneb 3.0-0.5 Mg/3 Ml NEB 03/11/18 19:05 3 ml ONETIME ONE Administration Ceftriaxone Sodium 1 gm 03/11/18 19:03 03/11/18 19:14 Rocephin IVPUSH 03/11/18 19:04 1 gm STAT ONE Administration Diltiazem HCl 20 mg 03/11/18 19:37 03/11/18 20:00 Diltiazem IVPUSH 03/11/18 19:38 20 mg ONETIME ONE Administration Sodium Chloride 1,000 mls @ 999 mls/hr 03/11/18 17:30 03/11/18 17:49 Normal Saline IV 03/11/18 18:30 999 mls/hr ONETIME ONE Administration Iopamidol 100 ml 03/11/18 19:08 03/11/18 19:09 Isovue-300 (61%) IVPUSH 03/11/18 19:09 100 ml ONETIME ONE Administration Methylprednisolone Sodium Succinate 125 mg 03/11/18 17:29 03/11/18 17:49 Solu-Medrol IVPUSH 03/11/18 17:30 125 mg ONETIME ONE Administration - Radiology Interpretation Free Text/Narrative:: CXR: No acute findings or significant change from prior examination CTA Chest: See scanned report for details CT Results Date: 03/11/18 CT Results Time: 20:34 Departure - Departure Time of Disposition: 20:49 Disposition: Admitted As Inpatient 64 Condition: Good Clinical Impression: Pneumonitis, Hypoxia, Shortness of breath - Discharge Information *PRESCRIPTION DRUG MONITORING PROGRAM REVIEWED*: Not Applicable *COPY OF PRESCRIPTION DRUG MONITORING REPORT IN PATIENT JESS: Not Applicable ED Communication - ED Communication Date/Time Date: 03/11/18 Time Called: 20:25 - Discussed Case With (1) Discussed Case With (1): Outpatient Provider (Dr. Kilpatrick, [facility]) - Discussed Case With (2) Discussed Case With (2): Admitting Provider Person/s Notified (3): Raisa Espinal - Conversation Summary Admitting Provider Agreed to Patient's Admission: Yes Patient Aware of Amendments fo Care Plan: Yes Patient's POA/Guardian Aware of Amendments to Care Plan: Yes - Problem List Review Problem List Initiated/Reviewed/Updated: Yes - My Orders Last 24 Hours: My Active Orders 03/11/18 17:28 Chest 2V [CR] Stat 03/11/18 17:29 EKG 12 Lead [EKG Documentation Completion] [RC] STAT Sodium Chloride 0.9% [Saline Flush] 10 ml FLUSH ASDIRECTED PRN Peripheral IV Insertion Adult [OM.PC] Routine 03/11/18 17:30 RT Aerosol Therapy [RC] ASDIRECTED 03/11/18 18:23 Chest PE [Ang Chest] [CT] Stat - Assessment/Plan Last 24 Hours: My Active Orders 03/11/18 17:28 Chest 2V [CR] Stat 03/11/18 17:29 EKG 12 Lead [EKG Documentation Completion] [RC] STAT Sodium Chloride 0.9% [Saline Flush] 10 ml FLUSH ASDIRECTED PRN Peripheral IV Insertion Adult [OM.PC] Routine 03/11/18 17:30 RT Aerosol Therapy [RC] ASDIRECTED 03/11/18 18:23 Chest PE [Ang Chest] [CT] Stat Assessment:: Hypoxia SOB Pneumonitis Plan: Case discussed with Dr. Kilpatrick, Hospitalist [facility]. Recommend patient be admitted in this facility to be worked up for O2 home use. Dr. Espinal contacted for admission. Patient accepted. Report given. Patient will be admitted acute under Dr. Last Paul's service.
[2018-03-11] MEDS ORDERED: cefTRIAXone 1 GM Vial IVPUSH ONE (19:03)
[2018-03-11] MEDS ORDERED: Iopamidol 612 MG/ML 100 ML Bottle IVPUSH ONE (19:08)
[2018-03-11] MEDS ORDERED: Diltiazem 25 MG/5 ML SDV IVPUSH ONE (19:37)
--- NOTE | 2018-03-11 22:00 | PCM.HP ---
H&P History of Present Illness - General Date of Service: 03/11/18 Admit Problem/Dx: Admission Diagnosis/Problem Admission Diagnosis/Problem Hypoxia Source of Information: Patient History Limitations: Reports: No Limitations - History of Present Illness Initial Comments - Free Text/Narative: Mr. Seo is a 57 yo male with PMH of asthma/COPD, nasal polyps, DM, HLD, and rectal cancer who presented to the ER for evaluation of increased shortness of breath over the preceding 1 hour. He has really had a 2 year struggle with breathing issues and this has been especially worse over the past 6 months. He has modified his activities because he cannot do what he used to do secondary to shortness of breath. He has had some chronic sinus congestion as well and is known to have nasal polyps. He uses nasal rinses and flonase, which sometimes helps his sinus congestion and sometimes seems to make it worse. Whenever he gets his sinuses starting to clear up, he can feel congestion starting to settle into his chest. Over the past 2 weeks, he has had very little energy, has had hot/cold sweats, and has had more shortness of breath than usual. His temperature has not been elevated whenever he has checked this. He has had persistent thick yellow rhinorrhea and some postnasal drip but has not had a cough. Even over the past 2 years with his shortness of breath, he has not really struggled with a cough. He has been using his albuterol inhaler without much relief in symptoms. He was seen last week and given a kenalog shot and a prescription for augmentin. He cannot say that this has really helped his symptoms much at all. No chest pain or leg swelling. He is frustrated due to ongoing symptoms over the past few months that have not been improving with the interventions recommended by his specialists. He notes that he has been up to 60-70% of himself but has not been at 100% for the past 2 years. He is a never smoker. He does have some secondhand smoke from work and from his father growing up. He has never been a house and never served in the [employer]. He has worked at the [employer] for the past 40 years. He has no family history of COPD or asthma. He had seasonal allergies as a child but the symptoms that previously were seasonal are now more persistent. He has a history of asthma as a child but did not get started on a daily controller inhaler until about 10 years ago. He then did well on advair for quite some time but had more trouble starting about 2 years ago. This was around the time he was diagnosed with rectal cancer, which was treated with chemotherapy and radiation. He was transitioned to symbicort without much improvement in symptoms. Spiriva was recently added but he took the first dose of that this morning. - Related Data Allergies/Adverse Reactions: Allergies Allergy/AdvReac Type Severity Reaction Status Date / Time No Known Allergies Allergy Verified 03/11/18 19:33 Home Medications: Home Meds atorvaSTATin [Lipitor] 10 mg PO DAILY 02/26/15 [History] metFORMIN [Glucophage] 1,000 mg PO BIDMEALS tablet 07/27/17 [Rx] Albuterol [Proventil HFA] 2 puff INH Q4H PRN 10/15/17 [History] Aspirin [Halfprin] 81 mg PO DAILY 10/15/17 [History] Budesonide/Formoterol Fumarate [Symbicort 80-4.5 Mcg Inhaler] 2 puff INH BID [History] glipiZIDE [Glucotrol XL] 5 mg PO DAILY tab.er 10/16/17 [Rx] Amoxicillin/Clavulanate K [Augmentin 875-125 MG] 1 tab PO BID 03/11/18 [History] Fluticasone Propionate [Flonase] 1 spray IN DAILY 03/11/18 [History] Past Medical History HEENT History: Reports: Other (See Below) Other HEENT History: seasonal allergies. sinus problems Cardiovascular History: Reports: High Cholesterol Respiratory History: Reports: Asthma, COPD Gastrointestinal History: Reports: None Genitourinary History: Reports: None Other Musculoskeletal History: fracture of neck of femur Neurological History: Reports: None Psychiatric History: Reports: None Endocrine/Metabolic History: Reports: Diabetes, Type II Hematologic History: Reports: None Immunologic History: Reports: None Oncologic (Cancer) History: Reports: Other (See Below) Other Oncologic History: rectal CA Dermatologic History: Reports: None - Infectious Disease History Infectious Disease History: Reports: None - Past Surgical History HEENT Surgical History: Reports: Adenoidectomy, Tonsillectomy GI Surgical History: Reports: None Endocrine Surgical History: Reports: None Other Musculoskeletal Surgeries/Procedures:: REPAIR OF FX LEFT HIP 45 YRS AGO Oncologic Surgical History: Reports: None Social & Family History - Family History Cardiac: Reports: CAD Endocrine/Metabolic: Reports: Diabetes, type II Oncologic: Reports: Liver, Skin (melanoma) - Tobacco Use Smoking Status *Q: Never Smoker - Caffeine Use Caffeine Use: Reports: None - Alcohol Use Alcohol Use History: No Alcohol Use in Last Twelve Months: No - Recreational Drug Use Recreational Drug Use: No - Living Situation & Occupation Living situation: Reports: , with Significant Other Occupation: Employed H&P Review of Systems - Review of Systems: Review Of Systems: See Below General: Reports: Chills, Weakness, Fatigue HEENT: Reports: Post Nasal Drip, Sinus Congestion Pulmonary: Reports: Shortness of Breath. Denies: Cough, Sputum Cardiovascular: Reports: No Symptoms Gastrointestinal: Reports: No Symptoms Genitourinary: Reports: No Symptoms Musculoskeletal: Reports: No Symptoms Skin: Reports: No Symptoms Psychiatric: Reports: No Symptoms Neurological: Reports: No Symptoms Exam - Exam Exam: See Below - Vital Signs Vital Signs: Last Vital Signs Temp 36.9 C 03/11/18 17:30 Pulse 124 H 03/11/18 18:50 Resp 22 H 03/11/18 18:50 BP 158/99 H 03/11/18 18:50 Pulse Ox 90 L 03/11/18 18:50 Weight: 94.347 kg - Exam General: Alert, Oriented, Cooperative HEENT: Conjunctiva Clear, Mucosa Moist & Vayas, Nares Patent, Posterior Pharynx Clear, Pupils Equal, Pupils Reactive, TMs Clear Neck: Supple, Trachea Midline. No: Lymphadenopathy, Thyromegaly Lungs: Normal Respiratory Effort, Crackles (scattered bilaterally), Other ( audible bronchospasm with coughing) Cardiovascular: Regular Rate, Regular Rhythm, Normal S1, Normal S2 GI/Abdominal Exam: Normal Bowel Sounds, Soft, Non-Tender, No Organomegaly, No Distention, No Mass Extremities: Non-Tender, No Pedal Edema, Normal Capillary Refill Peripheral Pulses: 2+: Radial (L), Radial (R) Skin: Warm, Dry, Intact - Patient Data Lab Results Last 24 hrs: Laboratory Results - last 24 hr 03/11/18 03/11/18 03/11/18 Range/Units 17:50 17:50 17:50 WBC 12.3 H (4.0-10.0) x10^3/uL RBC 4.90 (4.5-6.0) x10^6/uL Hgb 15.8 D (14.0-18.0) g/dL Hct 45.8 (40.0-52.0) % MCV 93.5 H (78.0-93.0) fL MCH 32.2 H (26.0-32.0) pg MCHC 34.5 (32.0-36.0) g/dL RDW Coeff of Blayne 12.2 (10.0-15.0) % Plt Count 251 (130-400) x10^3/uL Add Manual Diff Yes Neutrophils % (Manual) 80 (50-80) % Lymphocytes % (Manual) 8 L (25-50) % Monocytes % (Manual) 3 (2-11) % Eosinophils % (Manual) 8 H (0-4) % Blast Cells % 1 H (0) % Platelet Estimate Adequate PT 12.2 H (9.6-11.4) SEC INR 1.2 L (2.0-3.5) D-Dimer, Quantitative 0.64 H (<=0.58) mg/LFEU POC ABG pH ABG pH (7.35-7.45) POC ABG pCO2 ABG pCO2 (35-45) mmHG POC ABG pO2 ABG pO2 (80-105) mmHG POC ABG HCO3 ABG HCO3 (22-26) mmol/L POC ABG Total CO2 ABG Total CO2 (23-27) mmol/L POC ABG O2 Sat ABG O2 Content (95-98) % POC ABG Base Excess ABG Base Excess (-2-3) mmol/L POC VBG pH POC VBG pCO2 POC VBG pO2 POC VBG HCO3 POC VBG Total CO2 POC VBG Base Excess O2 Delivery Device POC O2 Flow Rate FiO2 POC FiO2 Sodium 138 (136-145) mmol/L Potassium 3.3 L (3.5-5.1) mmol/L Chloride 102 (98-107) mmol/L Carbon Dioxide 27 (21-32) mmol/L Anion Gap 12.3 (10-20) mmol/L BUN 23 H (7-18) mg/dL Creatinine 1.1 (0.70-1.30) mg/dL Est Cr Clr Drug Dosing TNP Estimated GFR (MDRD) > 60 Glucose 249 H (74-106) mg/dL Calcium 8.3 L (8.5-10.1) mg/dL Creatine Kinase 42 (39-308) U/L Troponin I < 0.017 (<=0.056) ng/mL 03/11/18 03/11/18 Range/Units 18:15 18:15 WBC (4.0-10.0) x10^3/uL RBC (4.5-6.0) x10^6/uL Hgb (14.0-18.0) g/dL Hct (40.0-52.0) % MCV (78.0-93.0) fL MCH (26.0-32.0) pg MCHC (32.0-36.0) g/dL RDW Coeff of Blayne (10.0-15.0) % Plt Count (130-400) x10^3/uL Add Manual Diff Neutrophils % (Manual) (50-80) % Lymphocytes % (Manual) (25-50) % Monocytes % (Manual) (2-11) % Eosinophils % (Manual) (0-4) % Blast Cells % (0) % Platelet Estimate PT (9.6-11.4) SEC INR (2.0-3.5) D-Dimer, Quantitative (<=0.58) mg/LFEU POC ABG pH Cancelled ABG pH 7.41 (7.35-7.45) POC ABG pCO2 Cancelled ABG pCO2 34 L (35-45) mmHG POC ABG pO2 Cancelled ABG pO2 59 L* (80-105) mmHG POC ABG HCO3 Cancelled ABG HCO3 21 L (22-26) mmol/L POC ABG Total CO2 Cancelled ABG Total CO2 22 L (23-27) mmol/L POC ABG O2 Sat Cancelled ABG O2 Content 91 L (95-98) % POC ABG Base Excess Cancelled ABG Base Excess -3 L (-2-3) mmol/L POC VBG pH Cancelled POC VBG pCO2 Cancelled POC VBG pO2 Cancelled POC VBG HCO3 Cancelled POC VBG Total CO2 Cancelled POC VBG Base Excess Cancelled O2 Delivery Device Cancelled POC O2 Flow Rate Cancelled FiO2 0.32 POC FiO2 Cancelled Sodium (136-145) mmol/L Potassium (3.5-5.1) mmol/L Chloride (98-107) mmol/L Carbon Dioxide (21-32) mmol/L Anion Gap (10-20) mmol/L BUN (7-18) mg/dL Creatinine (0.70-1.30) mg/dL Est Cr Clr Drug Dosing Estimated GFR (MDRD) Glucose (74-106) mg/dL Calcium (8.5-10.1) mg/dL Creatine Kinase (39-308) U/L Troponin I (<=0.056) ng/mL Result Diagrams: 03/11/18 17:50 03/11/18 17:50 - Problem List (1) Acute respiratory failure with hypoxia SNOMED Code(s): 76878662, 228841943 ICD Code: J96.01 - ACUTE RESPIRATORY FAILURE WITH HYPOXIA Status: Acute Current Visit: Yes (2) Bronchitis SNOMED Code(s): 71175943 ICD Code: J40 - BRONCHITIS, NOT SPECIFIED ACUTE OR CHRONIC Status: Acute Current Visit: Yes (3) SIRS (systemic inflammatory response syndrome) SNOMED Code(s): 091997575 ICD Code: R65.10 - SIRS OF NON-INFECTIOUS ORIGIN W/O ACUTE ORGAN DYSFUNCTION Status: Acute Current Visit: Yes (4) COPD (chronic obstructive pulmonary disease) SNOMED Code(s): 97635961 ICD Code: J44.9 - CHRONIC OBSTRUCTIVE PULMONARY DISEASE, UNSPECIFIED Status : Chronic Current Visit: Yes Qualifiers: COPD type: unspecified COPD Qualified Code(s): J44.9 - Chronic obstructive pulmonary disease, unspecified (5) Asthma SNOMED Code(s): 690362024 ICD Code: J45.909 - UNSPECIFIED ASTHMA, UNCOMPLICATED Status: Chronic Current Visit: No Qualifiers: Asthma severity: moderate Asthma persistence: persistent Asthma complication type: with acute exacerbation Qualified Code(s): J45.41 - Moderate persistent asthma with (acute) exacerbation (6) DM2 (diabetes mellitus, type 2) SNOMED Code(s): 04929854 ICD Code: E11.9 - TYPE 2 DIABETES MELLITUS WITHOUT COMPLICATIONS Status: Chronic Current Visit: No Qualifiers: Diabetes mellitus mcfp insulin use: without mcfp use Diabetes mellitus complication status: without complication Qualified Code(s): E11.9 - Type 2 diabetes mellitus without complications Problem List Initiated/Reviewed/Updated: Yes Orders Last 24hrs: Active Orders 24 hr Category Date Time Status Admission Status [Patient Status] [ADT] Routine ADT 03/11/18 20:42 Active Blood Glucose Check, Bedside [RC] QIDACANDBED Care 03/11/18 21:53 Ordered EKG 12 Lead [EKG Documentation Completion] [RC] STAT Care 03/11/18 17:29 Active Notify Provider Vital Signs [RC] ASDIRECTED Care 03/11/18 21:48 Ordered Oxygen Therapy [RC] PRN Care 03/11/18 21:48 Ordered RT Aerosol Therapy [RC] ASDIRECTED Care 03/11/18 17:30 Active RT Aerosol Therapy [RC] ASDIRECTED Care 03/11/18 21:53 Ordered Up With Assistance [RC] ASDIRECTED Care 03/11/18 21:48 Ordered VTE/DVT Education [RC] PER UNIT ROUTINE Care 03/11/18 21:48 Ordered Vital Signs [RC] Q4H Care 03/11/18 21:48 Ordered Consult to Respiratory Therapy [Respiratory Care Assess Cons 03/12/18 08:00 Ordered and Treatment] [CONS] Routine Regular Diet [DIET] Diet 03/11/18 Breakfast Ordered Chest 2V [CR] Stat Exams 03/11/18 17:28 Taken Chest PE [Ang Chest] [CT] Stat Exams 03/11/18 18:23 Taken BASIC METABOLIC PANEL,BMP [CHEM] Routine Lab 03/12/18 05:11 Ordered C-REACTIVE PROTEIN [CHEM] Routine Lab 03/12/18 05:11 Ordered CBC WITH AUTO DIFF [HEME] Routine Lab 03/12/18 05:11 Ordered PRO B-TYPE NATRIUR PEPT,BNPPRO [CHEM] Routine Lab 03/12/18 05:11 Ordered Albuterol/Ipratropium [DuoNeb 3.0-0.5 MG/3 ML] Med 03/11/18 23:00 Ordered 3 ml NEB Q4HRRT Aspirin [Halfprin] Med 03/12/18 08:00 Ordered 81 mg PO DAILY Budesonide/Formoterol Fumarate [Symbicort 80-4.5 Mcg Med 03/12/18 08:00 Ordered Inhaler] 2 puff INH BID Enoxaparin [Lovenox] Med 03/12/18 08:00 Ordered 40 mg SUBCUT DAILY Fluticasone Propionate [Flonase] Med 03/12/18 08:00 Ordered 1 spray NASBOTH DAILY Sodium Chloride 0.9% [Saline Flush] Med 03/11/18 17:29 Active 10 ml FLUSH ASDIRECTED PRN atorvaSTATin [Lipitor] Med 03/12/18 08:00 Ordered 10 mg PO DAILY glipiZIDE [Glucotrol XL] Med 03/12/18 08:00 Ordered 5 mg PO DAILY Peripheral IV Insertion Adult [OM.PC] Routine Oth 03/11/18 17:29 Ordered Resuscitation Status Routine Resus Stat 03/11/18 21:48 Ordered Medication Orders Albuterol/Ipratropium (Duoneb 3.0-0.5 Mg/3 Ml) 3 ml NEB Q4HRRT [place] Aspirin (Halfprin) 81 mg PO DAILY [place] Enoxaparin Sodium (Lovenox) 40 mg SUBCUT DAILY [place] Fluticasone Propionate (Flonase) gm NASBOTH DAILY [place] Glipizide (Glucotrol Xl) 5 mg PO DAILY [place] Non-Formulary Medication (Atorvastatin [Lipitor]) 10 mg PO DAILY [place] Non-Formulary Medication (Budesonide/Formoterol Fumarate [Symbicort 80-4.5 Mcg Inhaler]) 2 puff INH BID [place] Sodium Chloride (Saline Flush) 10 ml FLUSH ASDIRECTED PRN PRN Reason: Keep Vein Open Assessment/Plan Comment:: 57 yo male admitted with hypoxic respiratory failure secondary to COPD/asthma exacerbation and bronchitis. Doing much better after ER interventions but continues to require oxygen to maintain saturations >88%. #1 Acute Hypoxic Respiratory Failure - Symptoms felt to be secondary to COPD/asthma exacerbation as well as bronchitis. - CT without evidence of lobar pneumonia. Question if bronchial thickening is atypical pneumonia but pattern is not really typical. - EKG unremarkable apart from sinus tach, troponin negative. D-dimer elevated but CTA negative. No cardiac history and symptoms overall not consistent with CHF; will check a BNP in the am. - Patient will continue O2 to maintain saturations >88%. - RT consult tomorrow for home O2 evaluation. #2 Bronchitis - CT findings more consistent with bronchitis than pneumonia. - WBC elevated but patient has been on steroids recently. - Appropriately received a dose of ceftriaxone in the ER. - Will recheck CBC and also do CRP tomorrow am and decide on further antibiotics from there. #3 SIRS - Meets SIRS criteria with tachycardia and leukocytosis. No obvious bacterial source so does not meet sepsis criteria. - If labs in am supportive of atypical pneumonia, then would be sepsis and will also check a lactic acid. - Given question of fluid overload on CT, will hold off on any further IV fluids and reassess in the am. - Patient is also chronically tachycardic and is not far off from baseline. #4 COPD Exacerbation #5 Asthma Exacerbation - Diagnosis chronically has been asthma but most recent PFT shows minimal reversibility and is more consistent with COPD. - Exposure risk is minimal so could be from chronically uncontrolled asthma but history does not suggest this. - Likely will need pulmonology consultation as an outpatient for further evaluation and management. - For now, see above for O2 and antibiotic discussion. - Prednisone 40 mg daily with plan for taper as fast as he tolerates due to underlying DM as well. - DuoNebs scheduled q4 hours. #6 DM II - Metformin will be held since he received contrast for CT scan. - Continue glipizide. - Will do QID POC glucose and add SSI PRN depending on glucose readings. Patient will be admitted to acute status as he meets criteria based on diagnoses above. Likely will also require 2 nights of admission. See details as above. Home medications continued except metformin and albuterol inhaler ( replaced with DuoNebs). Lovenox for VTE prophylaxis. Patient is full code - discussed on admission.
[2018-03-11] MEDS: Albuterol/Ipratropium 3.0-0.5 MG/3 ML Neb Soln NEB SCH (23:40)
[2018-03-12] MEDS: Albuterol/Ipratropium 3.0-0.5 MG/3 ML Neb Soln NEB SCH ×6 (03:05→22:53)
--- NOTE | 2018-03-12 06:50 | PCM.PN ---
- General Info Date of Service: 03/12/18 Subjective Update: Patient is feeling much better this morning. Energy level is still poor but shortness of breath is minimal. He did start coughing this morning and this has been dry. No fever or chills. No chest pain. Appetite is good. Normal urine and stool output. Oxygen weaned to 1 L overnight. - Review of Systems General: Reports: No Symptoms HEENT: Reports: No Symptoms Pulmonary: Reports: No Symptoms Cardiovascular: Reports: No Symptoms Gastrointestinal: Reports: No Symptoms Genitourinary: Reports: No Symptoms Musculoskeletal: Reports: No Symptoms Skin: Reports: No Symptoms Neurological: Reports: No Symptoms - Patient Data Vitals - Most Recent: Last Vital Signs Temp 36.3 C 03/12/18 06:00 Pulse 91 03/12/18 06:00 Resp 18 03/12/18 06:00 BP 131/71 03/12/18 06:00 Pulse Ox 96 03/12/18 06:00 Weight - Most Recent: 94.347 kg I&O - Last 24 Hours: Intake & Output 03/11/18 03/11/18 03/12/18 14:59 22:59 06:59 Intake Total 1000 300 Balance 1000 300 Lab Results Last 24 Hours: Laboratory Results - last 24 hr 03/11/18 03/11/18 03/11/18 Range/Units 17:50 17:50 17:50 WBC 12.3 H (4.0-10.0) x10^3/uL RBC 4.90 (4.5-6.0) x10^6/uL Hgb 15.8 D (14.0-18.0) g/dL Hct 45.8 (40.0-52.0) % MCV 93.5 H (78.0-93.0) fL MCH 32.2 H (26.0-32.0) pg MCHC 34.5 (32.0-36.0) g/dL RDW Coeff of Blayne 12.2 (10.0-15.0) % Plt Count 251 (130-400) x10^3/uL Add Manual Diff Yes Neutrophils % (Manual) 80 (50-80) % Lymphocytes % (Manual) 8 L (25-50) % Monocytes % (Manual) 3 (2-11) % Eosinophils % (Manual) 8 H (0-4) % Blast Cells % 1 H (0) % Platelet Estimate Adequate PT 12.2 H (9.6-11.4) SEC INR 1.2 L (2.0-3.5) D-Dimer, Quantitative 0.64 H (<=0.58) mg/LFEU POC ABG pH ABG pH (7.35-7.45) POC ABG pCO2 ABG pCO2 (35-45) mmHG POC ABG pO2 ABG pO2 (80-105) mmHG POC ABG HCO3 ABG HCO3 (22-26) mmol/L POC ABG Total CO2 ABG Total CO2 (23-27) mmol/L POC ABG O2 Sat ABG O2 Content (95-98) % POC ABG Base Excess ABG Base Excess (-2-3) mmol/L POC VBG pH POC VBG pCO2 POC VBG pO2 POC VBG HCO3 POC VBG Total CO2 POC VBG Base Excess O2 Delivery Device POC O2 Flow Rate FiO2 POC FiO2 Sodium 138 (136-145) mmol/L Potassium 3.3 L (3.5-5.1) mmol/L Chloride 102 (98-107) mmol/L Carbon Dioxide 27 (21-32) mmol/L Anion Gap 12.3 (10-20) mmol/L BUN 23 H (7-18) mg/dL Creatinine 1.1 (0.70-1.30) mg/dL Est Cr Clr Drug Dosing TNP Estimated GFR (MDRD) > 60 Glucose 249 H (74-106) mg/dL Calcium 8.3 L (8.5-10.1) mg/dL Creatine Kinase 42 (39-308) U/L Troponin I < 0.017 (<=0.056) ng/mL 03/11/18 03/11/18 Range/Units 18:15 18:15 WBC (4.0-10.0) x10^3/uL RBC (4.5-6.0) x10^6/uL Hgb (14.0-18.0) g/dL Hct (40.0-52.0) % MCV (78.0-93.0) fL MCH (26.0-32.0) pg MCHC (32.0-36.0) g/dL RDW Coeff of Blayne (10.0-15.0) % Plt Count (130-400) x10^3/uL Add Manual Diff Neutrophils % (Manual) (50-80) % Lymphocytes % (Manual) (25-50) % Monocytes % (Manual) (2-11) % Eosinophils % (Manual) (0-4) % Blast Cells % (0) % Platelet Estimate PT (9.6-11.4) SEC INR (2.0-3.5) D-Dimer, Quantitative (<=0.58) mg/LFEU POC ABG pH Cancelled ABG pH 7.41 (7.35-7.45) POC ABG pCO2 Cancelled ABG pCO2 34 L (35-45) mmHG POC ABG pO2 Cancelled ABG pO2 59 L* (80-105) mmHG POC ABG HCO3 Cancelled ABG HCO3 21 L (22-26) mmol/L POC ABG Total CO2 Cancelled ABG Total CO2 22 L (23-27) mmol/L POC ABG O2 Sat Cancelled ABG O2 Content 91 L (95-98) % POC ABG Base Excess Cancelled ABG Base Excess -3 L (-2-3) mmol/L POC VBG pH Cancelled POC VBG pCO2 Cancelled POC VBG pO2 Cancelled POC VBG HCO3 Cancelled POC VBG Total CO2 Cancelled POC VBG Base Excess Cancelled O2 Delivery Device Cancelled POC O2 Flow Rate Cancelled FiO2 0.32 POC FiO2 Cancelled Sodium (136-145) mmol/L Potassium (3.5-5.1) mmol/L Chloride (98-107) mmol/L Carbon Dioxide (21-32) mmol/L Anion Gap (10-20) mmol/L BUN (7-18) mg/dL Creatinine (0.70-1.30) mg/dL Est Cr Clr Drug Dosing Estimated GFR (MDRD) Glucose (74-106) mg/dL Calcium (8.5-10.1) mg/dL Creatine Kinase (39-308) U/L Troponin I (<=0.056) ng/mL Med Orders - Current: Current Medications Albuterol/Ipratropium (Duoneb 3.0-0.5 Mg/3 Ml) 3 ml NEB Q4HRRT [facility] Last Admin: 03/12/18 03:05 Dose: 3 ml Aspirin (Halfprin) 81 mg PO DAILY [facility] Atorvastatin Calcium (Lipitor) 10 mg PO DAILY [facility] Enoxaparin Sodium (Lovenox) 40 mg SUBCUT DAILY [facility] Fluticasone Propionate (Flonase) 0 gm NASBOTH DAILY [facility] Glipizide (Glucotrol Xl) 5 mg PO DAILY [facility] Mometasone Furoate/Formoterol Fumar (Dulera 100-5 Mcg) 2 puff IH BIDRT [facility] Prednisone (Prednisone) 40 mg PO WITHBREAKFAST [facility] Sodium Chloride (Saline Flush) 10 ml FLUSH ASDIRECTED PRN PRN Reason: Keep Vein Open Discontinued Medications Albuterol/Ipratropium (Duoneb 3.0-0.5 Mg/3 Ml) 3 ml NEB ONETIME ONE Stop: 03/11/18 17:30 Last Admin: 03/11/18 17:49 Dose: 3 ml Albuterol/Ipratropium (Duoneb 3.0-0.5 Mg/3 Ml) 3 ml NEB ONETIME ONE Stop: 03/11/18 19:05 Last Admin: 03/11/18 19:16 Dose: 3 ml Ceftriaxone Sodium (Rocephin) 1 gm IVPUSH STAT ONE Stop: 03/11/18 19:04 Last Admin: 03/11/18 19:14 Dose: 1 gm Diltiazem HCl (Diltiazem) 20 mg IVPUSH ONETIME ONE Stop: 03/11/18 19:38 Last Admin: 03/11/18 20:00 Dose: 20 mg Sodium Chloride (Normal Saline) 1,000 mls @ 999 mls/hr IV ONETIME ONE Stop: 03/11/18 18:30 Last Admin: 03/11/18 17:49 Dose: 999 mls/hr Iopamidol (Isovue-300 (61%)) 100 ml IVPUSH ONETIME ONE Stop: 03/11/18 19:09 Last Admin: 03/11/18 19:09 Dose: 100 ml Methylprednisolone Sodium Succinate (Solu-Medrol) 125 mg IVPUSH ONETIME ONE Stop: 03/11/18 17:30 Last Admin: 03/11/18 17:49 Dose: 125 mg - Exam General: Alert, Cooperative, No Acute Distress HEENT: Pupils Equal, Pupils Reactive, Mucous Membr. Moist/[place] Neck: Supple, Trachea Midline, No Thyromegaly. No: Lymphadenopathy Lungs: Clear to Auscultation, Normal Respiratory Effort Cardiovascular: Regular Rate, Regular Rhythm, No Murmurs GI/Abdominal Exam: Normal Bowel Sounds, Soft, Non-Tender, No Organomegaly, No Distention, No Mass Extremities: Non-Tender, No Pedal Edema, Normal Capillary Refill Peripheral Pulses: 2+: Radial (L), Radial (R) Skin: Warm, Dry, Intact - Problem List & Annotations (1) Acute respiratory failure with hypoxia SNOMED Code(s): 56834905, 663454912 Code(s): J96.01 - ACUTE RESPIRATORY FAILURE WITH HYPOXIA Status: Acute Current Visit: Yes (2) Bronchitis SNOMED Code(s): 30470029 Code(s): J40 - BRONCHITIS, NOT SPECIFIED ACUTE OR CHRONIC Status: Acute Current Visit: Yes (3) SIRS (systemic inflammatory response syndrome) SNOMED Code(s): 307151294 Code(s): R65.10 - SIRS OF NON-INFECTIOUS ORIGIN W/O ACUTE ORGAN DYSFUNCTION Status: Acute Current Visit: Yes (4) COPD (chronic obstructive pulmonary disease) SNOMED Code(s): 82502570 Code(s): J44.9 - CHRONIC OBSTRUCTIVE PULMONARY DISEASE, UNSPECIFIED Status : Chronic Current Visit: Yes Qualifiers: COPD type: unspecified COPD Qualified Code(s): J44.9 - Chronic obstructive pulmonary disease, unspecified (5) Asthma SNOMED Code(s): 112607553 Code(s): J45.909 - UNSPECIFIED ASTHMA, UNCOMPLICATED Status: Chronic Current Visit: No Qualifiers: Asthma severity: moderate Asthma persistence: persistent Asthma complication type: with acute exacerbation Qualified Code(s): J45.41 - Moderate persistent asthma with (acute) exacerbation (6) DM2 (diabetes mellitus, type 2) SNOMED Code(s): 62501706 Code(s): E11.9 - TYPE 2 DIABETES MELLITUS WITHOUT COMPLICATIONS Status: Chronic Current Visit: No Qualifiers: Diabetes mellitus intermediate school teacher insulin use: without intermediate use Diabetes mellitus complication status: without complication Qualified Code(s): E11.9 - Type 2 diabetes mellitus without complications - Problem List Review Problem List Initiated/Reviewed/Updated: Yes - My Orders Last 24 Hours: My Active Orders 03/11/18 21:48 Notify Provider Vital Signs [RC] 06,10,14,18,22,02 Oxygen Therapy [RC] 08,20 Up With Assistance [RC] 08,20 VTE/DVT Education [RC] .PRN Vital Signs [RC] 06,10,14,18,22,02 Resuscitation Status Routine 03/11/18 21:53 Blood Glucose Check, Bedside [RC] 07,11,17,21 RT Aerosol Therapy [RC] 03,07,11,15,19,23 03/11/18 23:00 Albuterol/Ipratropium [DuoNeb 3.0-0.5 MG/3 ML] 3 ml NEB Q4HRRT 03/11/18 Breakfast Regular Diet [DIET] 03/12/18 05:11 BASIC METABOLIC PANEL,BMP [CHEM] Routine C-REACTIVE PROTEIN [CHEM] Routine CBC WITH AUTO DIFF [HEME] Routine PRO B-TYPE NATRIUR PEPT,BNPPRO [CHEM] Routine 03/12/18 07:00 Mometasone/Formoterol [Dulera 100-5 MCG] 2 puff IH BIDRT 03/12/18 08:00 Consult to Respiratory Therapy [Respiratory Care Assess and Treatment] [CONS] Routine Aspirin [Halfprin] 81 mg PO DAILY Enoxaparin [Lovenox] 40 mg SUBCUT DAILY Fluticasone Propionate [Flonase] 0 gm NASBOTH DAILY atorvaSTATin [Lipitor] 10 mg PO DAILY glipiZIDE [Glucotrol XL] 5 mg PO DAILY predniSONE 40 mg PO WITHBREAKFAST - Assessment Assessment:: 57 yo male admitted with acute hypoxic respiratory failure secondary to flare of underlying lung disease (COPD/asthma). Doing much better today. Oxygen is weaned to 1 L from 2 L. Labs improved as well. - Plan Plan:: #1 Acute Hypoxic Respiratory Failure - Symptoms felt to be secondary to COPD/asthma exacerbation as well as bronchitis. - CT without evidence of lobar pneumonia. WBC significantly improved, CRP minimally elevated so not likely to be any bacterial pneumonia. - BNP normal. Other work-up in the ER unremarkable. - Patient will continue O2 to maintain saturations >88% but will likely be able to be tapered off of this today. - RT consult for home O2 evaluation if O2 requirements persist. #2 Bronchitis - CT findings more consistent with bronchitis than pneumonia. - WBC significantly improved today. CRP minimally elevated. - Likely would not benefit from further antibiotics. #3 SIRS - Met SIRS criteria with tachycardia and leukocytosis on admission. No obvious bacterial source so does not meet sepsis criteria. - No longer meeting criteria today with improvement in WBC. HR still above normal but much improved and at his baseline. #4 COPD Exacerbation #5 Asthma Exacerbation - Diagnosis chronically has been asthma but most recent PFT shows minimal reversibility and is more consistent with COPD. - Exposure risk is minimal so could be from chronically uncontrolled asthma but history does not suggest this. - Patient agreeable to pulmonology consultation as an outpatient for further evaluation and management. - Continue prednisone 40 mg daily with plan for taper as fast as he tolerates due to underlying DM as well. - DuoNebs scheduled q4 hours. #6 DM II - Metformin will be held since he received contrast for CT scan. - Continue glipizide. - Glucoses high but will monitor for trends today. Will do QID POC glucose and add SSI PRN depending on glucose readings. Patient admitted to acute status - if able to be weaned off O2 today and still feeling well this pm, plan will be to discharge later today. Most important piece will be pulmonology follow up for diagnostic clarification. See details as above. Home medications continued except metformin and albuterol inhaler ( replaced with DuoNebs). Lovenox for VTE prophylaxis. Patient is full code - discussed on admission.
[2018-03-12] MEDS: Formoterol/Mometasone 100-5 MCG 8.8 GM Inhaler IH SCH ×2 (06:52→19:38)
[2018-03-12 07:20] LABS: CHLORIDE,CL 103 mmol/L (98-107); SODIUM,NA 136 mmol/L (136-145)
[2018-03-12 07:23] LABS: ANION GAP 11.2 mmol/L (10-20)
[2018-03-12] MEDS: Fluticasone Propionate Nasal Spray 16 GM Bottle NASBOTH SCH (08:00)
[2018-03-12] MEDS: Aspirin 81 MG Tab.EC PO SCH (08:00)
[2018-03-12] MEDS: atorvaSTATin 10 MG Tab PO SCH (08:00)
[2018-03-12] MEDS ORDERED: Non-Formulary Medication 1 Each (Budesonide/Formoterol Fumarate [Symbicort 80-4.5 Mcg Inha INH SCH (08:00)
[2018-03-12] MEDS: Enoxaparin 40 MG/0.4 ML Syringe SUBCUT SCH (08:01)
[2018-03-12] MEDS: predniSONE 20 MG Tab PO SCH (08:01)
[2018-03-12] MEDS: glipiZIDE 5 MG Tab.ER PO SCH (08:01)
[2018-03-12] MEDS: Insulin Lispro 100 Unit/ML 3 ML KwikPen SUBCUT SCH ×2 (11:45→17:37)
[2018-03-12] MEDS ORDERED: GI Cocktail Oral Solution 30 ML PO ONE (15:06)
--- NOTE | 2018-03-12 15:10 | PCM.SN ---
- Free Text/Narrative Note: S: Checked on patient this pm. He remains off oxygen and has walked in the hallways 4 times this pm. However, over the past 30-60 minutes, he has had increased shortness of breath. Started with a burning in his abdomen and now he has been coughing and more short of breath. Has some central burning chest discomfort but no chest pain. No fever or chills. O: Vitals reviewed. Patient in no acute distress. MMM. Heart RRR with normal S1 and S2. No murmurs. Lungs CTAB. Patient able to talk in full sentences. Abdomen soft, nontender, nondistended. No pedal edema. A/P: #1 Shortness of breath - Patient recently had neb treatment with no benefit. - Given associated burning sensation, will try a GI cocktail in case this is reflux contributing to his symptoms. - If still no improvement, will try a second neb. - And if still no improvement yet, will likely need to call pulmonology to discuss recommendations/next steps. He does have an appointment scheduled for this Sunday. - Patient in agreement with this plan. Raisa Espinal MD
[2018-03-12] MEDS ORDERED: Albuterol 0.083% 2.5 MG/3 ML Neb Soln NEB ONE (16:02)
--- NOTE | 2018-03-12 17:29 | PCM.SN ---
- Free Text/Narrative Note: Some improvement with interventions previously outlined. Will add mucinex to help thin secretions. Discussed transfer to [facility] for pulmonology consultation inpatient but he prefers to stay here and see how he is in the morning. As he is stable, that is very reasonable. Will reassess tomorrow am.
[2018-03-12] MEDS: guaiFENesin 600 MG Tab.ER PO SCH (18:45)
[2018-03-12] MEDS: Sodium Chloride 0.9% 10 ML Syringe FLUSH PRN (19:39)
[2018-03-13] MEDS: Albuterol/Ipratropium 3.0-0.5 MG/3 ML Neb Soln NEB SCH ×4 (02:51→14:45)
[2018-03-13] MEDS: Formoterol/Mometasone 100-5 MCG 8.8 GM Inhaler IH SCH (06:37)
[2018-03-13 07:22] LABS: ANION GAP 6.7 mmol/L (10-20); CHLORIDE,CL 105 mmol/L (98-107); SODIUM,NA 137 mmol/L (136-145)
[2018-03-13] MEDS: Sodium Chloride 0.9% 10 ML Syringe FLUSH PRN (07:46)
[2018-03-13] MEDS: atorvaSTATin 10 MG Tab PO SCH (07:47)
[2018-03-13] MEDS: predniSONE 20 MG Tab PO SCH (07:47)
[2018-03-13] MEDS: glipiZIDE 5 MG Tab.ER PO SCH (07:47)
[2018-03-13] MEDS: Aspirin 81 MG Tab.EC PO SCH (07:47)
[2018-03-13] MEDS: guaiFENesin 600 MG Tab.ER PO SCH (07:47)
[2018-03-13] MEDS: Fluticasone Propionate Nasal Spray 16 GM Bottle NASBOTH SCH (07:49)
[2018-03-13] MEDS: Enoxaparin 40 MG/0.4 ML Syringe SUBCUT SCH (07:50)
[2018-03-13] MEDS: Insulin Lispro 100 Unit/ML 3 ML KwikPen SUBCUT SCH ×3 (07:52→17:25)
--- NOTE | 2018-03-13 08:36 | PCM.PN ---
- General Info Date of Service: 03/13/18 Subjective Update: Patient had an uneventful night. Symptoms that started yesterday afternoon lasted until about 7 pm and then resolved. He has had no issues with shortness of breath overnight. No fever or chills. No chest pain. Cough is about the same as yesterday. No abdominal pain. - Review of Systems General: Reports: No Symptoms HEENT: Reports: No Symptoms Pulmonary: Reports: No Symptoms Cardiovascular: Reports: No Symptoms Gastrointestinal: Reports: No Symptoms Genitourinary: Reports: No Symptoms Musculoskeletal: Reports: No Symptoms Skin: Reports: No Symptoms Neurological: Reports: No Symptoms - Patient Data Vitals - Most Recent: Last Vital Signs Temp 37.3 C 03/13/18 05:55 Pulse 90 03/13/18 05:55 Resp 20 03/13/18 05:55 BP 114/66 03/13/18 05:55 Pulse Ox 97 03/13/18 07:04 Weight - Most Recent: 90.356 kg I&O - Last 24 Hours: Intake & Output 03/12/18 03/13/18 03/13/18 22:59 06:59 14:59 Intake Total 180 Output Total 0 Balance 0 180 Lab Results Last 24 Hours: Laboratory Results - last 24 hr 03/13/18 03/13/18 Range/Units 06:40 06:50 WBC 7.7 (4.0-10.0) x10^3/uL RBC 4.24 L (4.5-6.0) x10^6/uL Hgb 13.7 L (14.0-18.0) g/dL Hct 39.9 L (40.0-52.0) % MCV 94.1 H (78.0-93.0) fL MCH 32.3 H (26.0-32.0) pg MCHC 34.3 (32.0-36.0) g/dL RDW Coeff of Blayne 12.1 (10.0-15.0) % Plt Count 223 (130-400) x10^3/uL Neut % (Auto) 71.2 (50.0-80.0) % Lymph % (Auto) 15.1 L (25.0-50.0) % [place] % (Auto) 6.0 (2.0-11.0) % Eos % (Auto) 7.4 H (0.0-4.0) % Baso % (Auto) 0.3 (0.2-1.2) % Sodium 137 (136-145) mmol/L Potassium 3.7 (3.5-5.1) mmol/L Chloride 105 (98-107) mmol/L Carbon Dioxide 29 (21-32) mmol/L Anion Gap 6.7 L (10-20) mmol/L BUN 15 (7-18) mg/dL Creatinine 0.7 (0.70-1.30) mg/dL Est Cr Clr Drug Dosing 128.41 mL/min Estimated GFR (MDRD) > 60 Glucose 166 H (74-106) mg/dL Calcium 8.2 L (8.5-10.1) mg/dL C-Reactive Protein 1.9 H (<=0.9) mg/dL Med Orders - Current: Current Medications Albuterol/Ipratropium (Duoneb 3.0-0.5 Mg/3 Ml) 3 ml NEB Q4HRRT [facility] Last Admin: 03/13/18 07:01 Dose: 3 ml Aspirin (Halfprin) 81 mg PO DAILY [facility] Last Admin: 03/13/18 07:47 Dose: 81 mg Atorvastatin Calcium (Lipitor) 10 mg PO DAILY [facility] Last Admin: 03/13/18 07:47 Dose: 10 mg Enoxaparin Sodium (Lovenox) 40 mg SUBCUT DAILY [facility] Last Admin: 03/13/18 07:50 Dose: 40 mg Fluticasone Propionate (Flonase) 0 gm NASBOTH DAILY [facility] Last Admin: 03/13/18 07:49 Dose: 1 gm Glipizide (Glucotrol Xl) 5 mg PO DAILY [facility] Last Admin: 03/13/18 07:47 Dose: 5 mg Guaifenesin (Mucinex) 1,200 mg PO BID [facility] Last Admin: 03/13/18 07:47 Dose: 1,200 mg Insulin Human Lispro (Humalog) 0 unit SUBCUT TIDMEALS [facility]; Protocol Last Admin: 03/13/18 07:52 Dose: 1 units Mometasone Furoate/Formoterol Fumar (Dulera 100-5 Mcg) 2 puff IH BIDRT [facility] Last Admin: 03/13/18 06:37 Dose: 2 puff Prednisone (Prednisone) 40 mg PO WITHBREAKFAST [facility] Last Admin: 03/13/18 07:47 Dose: 40 mg Sodium Chloride (Saline Flush) 10 ml FLUSH ASDIRECTED PRN PRN Reason: Keep Vein Open Last Admin: 03/13/18 07:46 Dose: 10 ml Discontinued Medications Al Hydroxide/Mg Hydroxide (Gi Cocktail) 30 ml PO ONETIME ONE Stop: 03/12/18 15:07 Last Admin: 03/12/18 15:33 Dose: 30 ml Albuterol (Proventil Neb Soln) 2.5 mg NEB ONETIME ONE Stop: 03/12/18 16:03 Last Admin: 03/12/18 16:36 Dose: 2.5 mg Albuterol/Ipratropium (Duoneb 3.0-0.5 Mg/3 Ml) 3 ml NEB ONETIME ONE Stop: 03/11/18 17:30 Last Admin: 03/11/18 17:49 Dose: 3 ml Albuterol/Ipratropium (Duoneb 3.0-0.5 Mg/3 Ml) 3 ml NEB ONETIME ONE Stop: 03/11/18 19:05 Last Admin: 03/11/18 19:16 Dose: 3 ml Ceftriaxone Sodium (Rocephin) 1 gm IVPUSH STAT ONE Stop: 03/11/18 19:04 Last Admin: 03/11/18 19:14 Dose: 1 gm Diltiazem HCl (Diltiazem) 20 mg IVPUSH ONETIME ONE Stop: 03/11/18 19:38 Last Admin: 03/11/18 20:00 Dose: 20 mg Sodium Chloride (Normal Saline) 1,000 mls @ 999 mls/hr IV ONETIME ONE Stop: 03/11/18 18:30 Last Admin: 03/11/18 17:49 Dose: 999 mls/hr Iopamidol (Isovue-300 (61%)) 100 ml IVPUSH ONETIME ONE Stop: 03/11/18 19:09 Last Admin: 03/11/18 19:09 Dose: 100 ml Methylprednisolone Sodium Succinate (Solu-Medrol) 125 mg IVPUSH ONETIME ONE Stop: 03/11/18 17:30 Last Admin: 03/11/18 17:49 Dose: 125 mg - Exam General: Alert, Cooperative, No Acute Distress HEENT: Mucous Membr. Moist/[place] Neck: Supple, Trachea Midline, No Thyromegaly. No: Lymphadenopathy Lungs: Clear to Auscultation, Normal Respiratory Effort Cardiovascular: Regular Rate, Regular Rhythm, No Murmurs GI/Abdominal Exam: Normal Bowel Sounds, Soft, Non-Tender, No Organomegaly, No Distention, No Mass Extremities: Non-Tender, No Pedal Edema, Normal Capillary Refill Peripheral Pulses: 2+: Radial (L), Radial (R) Skin: Warm, Dry, Intact - Problem List & Annotations (1) Acute respiratory failure with hypoxia SNOMED Code(s): 15475051, 308516858 Code(s): J96.01 - ACUTE RESPIRATORY FAILURE WITH HYPOXIA Status: Resolved Current Visit: Yes (2) Bronchitis SNOMED Code(s): 74794439 Code(s): J40 - BRONCHITIS, NOT SPECIFIED ACUTE OR CHRONIC Status: Acute Current Visit: Yes (3) SIRS (systemic inflammatory response syndrome) SNOMED Code(s): 644557418 Code(s): R65.10 - SIRS OF NON-INFECTIOUS ORIGIN W/O ACUTE ORGAN DYSFUNCTION Status: Resolved Current Visit: Yes (4) COPD (chronic obstructive pulmonary disease) SNOMED Code(s): 63565643 Code(s): J44.9 - CHRONIC OBSTRUCTIVE PULMONARY DISEASE, UNSPECIFIED Status : Chronic Current Visit: Yes Qualifiers: COPD type: unspecified COPD Qualified Code(s): J44.9 - Chronic obstructive pulmonary disease, unspecified (5) Asthma SNOMED Code(s): 880037572 Code(s): J45.909 - UNSPECIFIED ASTHMA, UNCOMPLICATED Status: Chronic Current Visit: No Qualifiers: Asthma severity: moderate Asthma persistence: persistent Asthma complication type: with acute exacerbation Qualified Code(s): J45.41 - Moderate persistent asthma with (acute) exacerbation (6) DM2 (diabetes mellitus, type 2) SNOMED Code(s): 73178917 Code(s): E11.9 - TYPE 2 DIABETES MELLITUS WITHOUT COMPLICATIONS Status: Chronic Current Visit: No Qualifiers: Diabetes mellitus jail insulin use: without watermaster use Diabetes mellitus complication status: without complication Qualified Code(s): E11.9 - Type 2 diabetes mellitus without complications - Problem List Review Problem List Initiated/Reviewed/Updated: Yes - My Orders Last 24 Hours: My Active Orders 03/12/18 08:00 Consult to Respiratory Therapy [Respiratory Care Assess and Treatment] [CONS] Routine Aspirin [Halfprin] 81 mg PO DAILY Enoxaparin [Lovenox] 40 mg SUBCUT DAILY Fluticasone Propionate [Flonase] 0 gm NASBOTH DAILY atorvaSTATin [Lipitor] 10 mg PO DAILY glipiZIDE [Glucotrol XL] 5 mg PO DAILY predniSONE 40 mg PO WITHBREAKFAST 03/12/18 12:00 Insulin Lispro [HumaLOG] See Protocol SUBCUT TIDMEALS 03/12/18 16:02 RT Aerosol Therapy [RC] ASDIRECTED 03/12/18 20:00 guaiFENesin [Mucinex] 1,200 mg PO BID - Assessment Assessment:: 57 yo male admitted with acute hypoxic respiratory failure secondary to flare of underlying lung disease (COPD/asthma). Doing well again this morning and has again been weaned off oxygen. Labs unremarkable this am. - Plan Plan:: #1 Acute Hypoxic Respiratory Failure - Symptoms felt to be secondary to COPD/asthma exacerbation as well as bronchitis. - CT without evidence of lobar pneumonia. WBC normal today, CRP minimally elevated so not likely to be any bacterial pneumonia. - Patient will continue O2 to maintain saturations >88% but will likely be able to remain off of this today. #2 Bronchitis - CT findings more consistent with bronchitis than pneumonia. - WBC normal today; CRP downtrending off antibiotics. - Likely would not benefit from further antibiotics. #3 SIRS - Met SIRS criteria with tachycardia and leukocytosis on admission. No obvious bacterial source so does not meet sepsis criteria. - No longer meeting SIRS criteria. #4 COPD Exacerbation #5 Asthma Exacerbation - Diagnosis chronically has been asthma but most recent PFT shows minimal reversibility and is more consistent with COPD. - Exposure risk is minimal so could be from chronically uncontrolled asthma but history does not suggest this. - Patient agreeable to pulmonology consultation as an outpatient for further evaluation and management. This is scheduled for Sunday (2 days from now). - Continue prednisone 40 mg daily with plan for taper as fast as he tolerates due to underlying DM as well. - DuoNebs scheduled q4 hours. - Mucinex also added last night. #6 DM II - Metformin will be held until tomorrow since he received contrast for CT scan. - Continue glipizide. - Glucoses better on SSI. Continue QID POC glucose with SSI. Patient admitted to acute status - doing well again this am but will observe through the afternoon since that is when he had his trouble yesterday. If able to remain off O2 today and still feeling well this pm, plan will be to discharge later today. Otherwise, will need to consider transfer to [place] so he can have inpatient pulmonology consultation. Hopefully, that will not be necessary and we can just get him to his Sunday appointment. See details as above. Home medications continued except metformin and albuterol inhaler ( replaced with DuoNebs). Lovenox for VTE prophylaxis. Patient is full code - discussed on admission.
--- NOTE | 2018-03-13 14:15 | PCM.DCSUM1 ---
Discharge Summary - Hospital Course Brief History: Mr. Seo is a 57 yo male admitted with exacerbation of bronchitis after presenting with acute on chronic shortness of breath. - Discharge Data Discharge Date: 03/13/18 Discharge Disposition: Home, Self-Care 01 Condition: Stable - Discharge Diagnosis/Problem(s) (1) Acute respiratory failure with hypoxia SNOMED Code(s): 04508314, 349776780 ICD Code: J96.01 - ACUTE RESPIRATORY FAILURE WITH HYPOXIA Status: Resolved Current Visit: Yes (2) Bronchitis SNOMED Code(s): 75683713 ICD Code: J40 - BRONCHITIS, NOT SPECIFIED ACUTE OR CHRONIC Status: Acute Current Visit: Yes (3) SIRS (systemic inflammatory response syndrome) SNOMED Code(s): 502248774 ICD Code: R65.10 - SIRS OF NON-INFECTIOUS ORIGIN W/O ACUTE ORGAN DYSFUNCTION Status: Resolved Current Visit: Yes (4) COPD (chronic obstructive pulmonary disease) SNOMED Code(s): 88850224 ICD Code: J44.9 - CHRONIC OBSTRUCTIVE PULMONARY DISEASE, UNSPECIFIED Status : Chronic Current Visit: Yes Qualifiers: COPD type: unspecified COPD Qualified Code(s): J44.9 - Chronic obstructive pulmonary disease, unspecified (5) Asthma SNOMED Code(s): 281297723 ICD Code: J45.909 - UNSPECIFIED ASTHMA, UNCOMPLICATED Status: Chronic Current Visit: No Qualifiers: Asthma severity: moderate Asthma persistence: persistent Asthma complication type: with acute exacerbation Qualified Code(s): J45.41 - Moderate persistent asthma with (acute) exacerbation (6) DM2 (diabetes mellitus, type 2) SNOMED Code(s): 06074848 ICD Code: E11.9 - TYPE 2 DIABETES MELLITUS WITHOUT COMPLICATIONS Status: Chronic Current Visit: No Qualifiers: Diabetes mellitus exterminator helper termite insulin use: without exterminator helper termite use Diabetes mellitus complication status: without complication Qualified Code(s): E11.9 - Type 2 diabetes mellitus without complications - Patient Summary/Data Operative Procedure(s) Performed: none Complications: none Consults: Consultations 03/12/18 08:00 Consult to Respiratory Therapy [Respiratory Care Assess and Treatment] [CONS] Routine Labs Pending at D/C: none Recommended Follow-up Testing/Procedures: See pulmonology on Sunday, 03/15. Planned Operative Procedure(s) after DC: none Hospital Course: Other causes for his shortness of breath were excluded in the ER or after admission to the floor. CT showed evidence of bronchitis but no other acute findings. Patient improved with prednisone but had another episode of dyspnea yesterday afternoon. Mucinex was added to help thin secretions. He has done well throughout the day today and had no recurrence of the shortness of breath. He is now coughing up some greenish sputum. No fever or chills. He has not required oxygen at all - was provided yesterday pm when he was feeling short of breath but was never warranted by oxygen saturations. He will be dismissed home to continue prednisone. He declines a prescription for neb treatments and will use his inhalers instead. He will see pulmonology in 2 days for further evaluation. Metformin was held given he received IV contrast in the ER and glucoses were treated with insulin. He can resume metformin tonight as that would be 48 hours since contrast was given. - Patient Instructions Diet: Usual Diet as Tolerated Activity: As Tolerated Driving: May Drive Today Showering/Bathing: May Shower - Discharge Plan *PRESCRIPTION DRUG MONITORING PROGRAM REVIEWED*: Not Applicable *COPY OF PRESCRIPTION DRUG MONITORING REPORT IN PATIENT JESS: Not Applicable Home Medications: Home Meds atorvaSTATin [Lipitor] 10 mg PO DAILY 02/26/15 [History] metFORMIN [Glucophage] 1,000 mg PO BIDMEALS tablet 07/27/17 [Rx] Albuterol [Proventil HFA] 2 puff PO Q4H PRN 10/15/17 [History] Aspirin [Halfprin] 81 mg PO DAILY 10/15/17 [History] glipiZIDE [Glucotrol XL] 5 mg PO DAILY tab.er 10/16/17 [Rx] Fluticasone Propionate [Flonase] 1 spray FERNANDO DAILY 03/11/18 [History] Budesonide/Formoterol [Symbicort 160-4.5 MCG] 2 puff PO BID 03/12/18 [History] guaiFENesin [Mucinex] 1,200 mg PO BID tab.er 03/13/18 [Rx] predniSONE 40 mg PO DAILY tablet 03/13/18 [Rx] - Discharge Summary/Plan Comment DC Time >30 min.: No - General Info Date of Service: 03/13/18 Subjective Update: Has done well today. Comfortable with dismissal home. See progress note from this am for further details. - Patient Data Vitals - Most Recent: Last Vital Signs Temp 36.4 C 03/13/18 14:00 Pulse 84 03/13/18 14:00 Resp 20 03/13/18 14:00 BP 110/74 03/13/18 14:00 Pulse Ox 96 03/13/18 14:00 Weight - Most Recent: 90.356 kg I&O - Last 24 hours: Intake & Output 03/12/18 03/13/18 03/13/18 22:59 06:59 14:59 Intake Total 360 Output Total 0 Balance 0 360 Lab Results - Last 24 hrs: Laboratory Results - last 24 hr 03/13/18 03/13/18 Range/Units 06:40 06:50 WBC 7.7 (4.0-10.0) x10^3/uL RBC 4.24 L (4.5-6.0) x10^6/uL Hgb 13.7 L (14.0-18.0) g/dL Hct 39.9 L (40.0-52.0) % MCV 94.1 H (78.0-93.0) fL MCH 32.3 H (26.0-32.0) pg MCHC 34.3 (32.0-36.0) g/dL RDW Coeff of Blayne 12.1 (10.0-15.0) % Plt Count 223 (130-400) x10^3/uL Neut % (Auto) 71.2 (50.0-80.0) % Lymph % (Auto) 15.1 L (25.0-50.0) % Cole % (Auto) 6.0 (2.0-11.0) % Eos % (Auto) 7.4 H (0.0-4.0) % Baso % (Auto) 0.3 (0.2-1.2) % Sodium 137 (136-145) mmol/L Potassium 3.7 (3.5-5.1) mmol/L Chloride 105 (98-107) mmol/L Carbon Dioxide 29 (21-32) mmol/L Anion Gap 6.7 L (10-20) mmol/L BUN 15 (7-18) mg/dL Creatinine 0.7 (0.70-1.30) mg/dL Est Cr Clr Drug Dosing 128.41 mL/min Estimated GFR (MDRD) > 60 Glucose 166 H (74-106) mg/dL Calcium 8.2 L (8.5-10.1) mg/dL C-Reactive Protein 1.9 H (<=0.9) mg/dL Med Orders - Current: Current Medications Albuterol/Ipratropium (Duoneb 3.0-0.5 Mg/3 Ml) 3 ml NEB Q4HRRT [facility] Last Admin: 03/13/18 10:58 Dose: 3 ml Aspirin (Halfprin) 81 mg PO DAILY [facility] Last Admin: 03/13/18 07:47 Dose: 81 mg Atorvastatin Calcium (Lipitor) 10 mg PO DAILY [facility] Last Admin: 03/13/18 07:47 Dose: 10 mg Enoxaparin Sodium (Lovenox) 40 mg SUBCUT DAILY [facility] Last Admin: 03/13/18 07:50 Dose: 40 mg Fluticasone Propionate (Flonase) 0 gm NASBOTH DAILY [facility] Last Admin: 03/13/18 07:49 Dose: 1 gm Glipizide (Glucotrol Xl) 5 mg PO DAILY [facility] Last Admin: 03/13/18 07:47 Dose: 5 mg Guaifenesin (Mucinex) 1,200 mg PO BID [facility] Last Admin: 03/13/18 07:47 Dose: 1,200 mg Insulin Human Lispro (Humalog) 0 unit SUBCUT TIDMEALS [facility]; Protocol Last Admin: 03/13/18 11:38 Dose: 2 units Mometasone Furoate/Formoterol Fumar (Dulera 100-5 Mcg) 2 puff IH BIDRT [facility] Last Admin: 03/13/18 06:37 Dose: 2 puff Prednisone (Prednisone) 40 mg PO WITHBREAKFAST [facility] Last Admin: 03/13/18 07:47 Dose: 40 mg Sodium Chloride (Saline Flush) 10 ml FLUSH ASDIRECTED PRN PRN Reason: Keep Vein Open Last Admin: 03/13/18 07:46 Dose: 10 ml Discontinued Medications Al Hydroxide/Mg Hydroxide (Gi Cocktail) 30 ml PO ONETIME ONE Stop: 03/12/18 15:07 Last Admin: 03/12/18 15:33 Dose: 30 ml Albuterol (Proventil Neb Soln) 2.5 mg NEB ONETIME ONE Stop: 03/12/18 16:03 Last Admin: 03/12/18 16:36 Dose: 2.5 mg Albuterol/Ipratropium (Duoneb 3.0-0.5 Mg/3 Ml) 3 ml NEB ONETIME ONE Stop: 03/11/18 17:30 Last Admin: 03/11/18 17:49 Dose: 3 ml Albuterol/Ipratropium (Duoneb 3.0-0.5 Mg/3 Ml) 3 ml NEB ONETIME ONE Stop: 03/11/18 19:05 Last Admin: 03/11/18 19:16 Dose: 3 ml Ceftriaxone Sodium (Rocephin) 1 gm IVPUSH STAT ONE Stop: 03/11/18 19:04 Last Admin: 03/11/18 19:14 Dose: 1 gm Diltiazem HCl (Diltiazem) 20 mg IVPUSH ONETIME ONE Stop: 03/11/18 19:38 Last Admin: 03/11/18 20:00 Dose: 20 mg Sodium Chloride (Normal Saline) 1,000 mls @ 999 mls/hr IV ONETIME ONE Stop: 03/11/18 18:30 Last Admin: 03/11/18 17:49 Dose: 999 mls/hr Iopamidol (Isovue-300 (61%)) 100 ml IVPUSH ONETIME ONE Stop: 03/11/18 19:09 Last Admin: 03/11/18 19:09 Dose: 100 ml Methylprednisolone Sodium Succinate (Solu-Medrol) 125 mg IVPUSH ONETIME ONE Stop: 03/11/18 17:30 Last Admin: 03/11/18 17:49 Dose: 125 mg
[2018-03-13 17:06] VITALS: BP 122/73
== END 2018-03-13 17:50 | disposition home or self-care (01) | DRG 140 ==
LOC: VM.ED 17:26 → VM.MS 20:42
PROVIDERS: ADMIT Family Medicine; ATTEND Family Medicine
DX: J44.1 Chronic obstructive pulmonary disease with (acute) exacerbation (principal); J96.01 Acute respiratory failure with hypoxia; E11.9 Type 2 diabetes mellitus without complications; J45.41 Moderate persistent asthma with (acute) exacerbation; E78.5 Hyperlipidemia, unspecified; J33.9 Nasal polyp, unspecified; E78.00 Pure hypercholesterolemia, unspecified; Z77.22 Contact with and (suspected) exposure to environmental tobacco smoke (acute) (chronic); Z79.899 Other long term (current) drug therapy; Z79.84 Long term (current) use of oral hypoglycemic drugs; Z79.82 Long term (current) use of aspirin; Z85.048 Personal history of other malignant neoplasm of rectum, rectosigmoid junction, and anus; Z92.21 Personal history of antineoplastic chemotherapy; Z92.3 Personal history of irradiation
CPT/HCPCS: 36415; 36600; 71046; 71275; 80048; 82550; 82803; 83880; 84484; 85025; 85379; 85610; 86140; 93005; 94640; 94760; 96361; 96374; 96375; 99285; A9270-GY; J0696; J1650; J1815; J2930; J3490; J7030; J7050; J7613-GY; J7620-GY; Q9967